=== PATIENT | male | born 1990 | race Caucasian/White ===

== ENCOUNTER 2020-08-11 11:44 | Emergency (ER) | payer SELFPAY ==
[2020-08-11 11:44] VITALS: BP 153/94; PULSE 77; RESP 16; TEMP 36.2; O2SAT 97; BMI 36.2
[2020-08-11 12:38] VITALS: BP 152/99; PULSE 70; RESP 18; TEMP 36.9; O2SAT 94
[2020-08-11] MEDS: Lidocaine 1% (20 ml mdv) 20 ML Vial INFILT (12:39)
--- NOTE | 2020-08-11 14:07 | ED.VIS.GEN ---
History of Present Illness Chief Complaint: Abscess Informant: Patient Onset: Weeks Context: Gradual Onset Narrative: Patient is a 29-year-old male with history of pilonidal abscess presenting with worsening pain over his tailbone. Patient states week ago he had drainage with expression of the area. He now feels like there is a hard bump in there and pus underneath it. He feels it needs to be drained. He states he started to have pain that goes to his tailbone and around to his hips. He denies associated fever or chills. He denies any difficulty with bowel movements or urination. Last pilonidal was 8 to 9 years ago. He is never seen a surgeon for it. States he recently came back from [place] from a hunting trip and is sitting a lot which is what seems to be irritated it. No other complaints at this time. Past Medical History - Allergies and Home Meds Allergies/Adverse Reactions: Allergies No Known Allergies Allergy (Verified 08/11/20 11:44) Primary Care Physician: Care Physician,No Primary [Primary Care Provider] - Past Medical History: - - Pilonidal abscess Surgical History: noncontributory Smoking Status: Never smoker Review of Systems General: Denies: Chills, Fever, Sweats Eyes: Denies: Visual changes - bilaterally, Diplopia ENT: Denies: Rhinorrhea, Sore throat Cardiovascular: Denies: Chest pain, Palpitations Respiratory: Denies: Dyspnea, Cough, Dyspnea on exertion Gastrointestinal: Denies: Abdominal pain, Nausea, Vomiting, Diarrhea, Melena, Hematochezia Genitourinary: Denies: Dysuria, Hematuria, Frequency Musculoskeletal: Denies: Back pain, Extremity Pain Skin: Reports: Abscess - tailbone . Denies: Rash, Wounds Neurological: Denies: Headache, Weakness, Numbness Physical Exam Vital Signs/Narrative: Vital Signs Temp Pulse Resp BP Pulse Ox 08/11/20 12:38 98.5 F 70 18 152/99 H 94 08/11/20 11:44 97.2 F L 77 16 153/94 H 97 Inital Vital Signs reviewed: Yes General: Well nourished, Well developed, Obese, No Acute Distress Head: Normocephalic, Atraumatic Eyes: Perrl, EOMI ENT: Moist mucous membranes, No rhinorrhea Neck: Supple, Nontender Cardiovascular: Regular rate, Regular rhythm, No murmurs Respiratory: No distress, CTA bilaterally, Chest nontender Abdomen: Soft, Nontender, Nondistended, Normal bowel sounds Back: Nontender, Normal Inspection. Negative for: CVA tenderness, Spinal tenderness Extremities: Nontender, No edema Skin: Normal color, No rash, - - Hard mobile 1cm mass palpated just superior to the gluteal cleft, there is a old appearing sinus tract present. No associated fluctuance, erythema or drainage. Neurological: Alert, Oriented x3, Cranial nerves II-XII grossly intact, Normal Strength, Normal Sensation Psychological: Normal affect, Normal Mood Diagnostic/Tx/Re-eval - Medical Decision Making Patient is evaluated for recurrent abscess and pain to his tailbone area. On exam patient does not appear to have an active pilonidal abscess and likely it spontaneously drained a week ago and went down. Patient is quite insistent that there is purulence in there however. I did offer CT to better visualize especially she is having pain going to his hips but he states he does not want that as he is vidales pay. Bedside ultrasound performed by myself does show a 1 cm circumferential hypoechoic area about 1 cm underneath the skin. Do not see anything deeper. It counseled patient that I do not expect to get purulent from it but he is insistent that he wanted to be drained. Patient is counseled on the risk of having it be unsuccessful and need for outpatient surgical follow-up. He verbalizes agreement understand with this. I&D performed and there was a very small amount of hard white material expressed but no other purulent material. Patient does not look to have a secondary infection I do not think he needs antibiotics at this time. He is given referral for surgery is likely this will need to be evaluated in the OR for removal not emergently. Patient is counseled on signs and symptoms requiring return to the emergency room. Patient verbalizes agreement and understand this plan. Patient discharged home in stable and improved condition. Procedures Procedure(s): Incision and drainage. Area cleaned with alcohol. 4 to 5 cc of 1% lidocaine without alcohol injected subcutaneously to form the wheel. #10 blade used to make a vertical 2 cm incision over the mass. There is small amount of bleeding but no purulence expressed. A small amount of hard white material was expressed. Area was explored with hemostats to break up any potential loculations. Packing placed to keep the wound open and let heal by secondary intent. No immediate complications. ED Disposition - Plan for ED Patient: Disposition: Home or Assisted Living Diagnosis: Pilonidal cyst without abscess Instructions: ED Pilonidal Cyst, Not Infected Referrals: Yemi Evangelista MD [STAFF PHYSICIAN] -
== END 2020-08-11 14:36 | disposition home or self-care (01) ==
PROVIDERS: Emergency Provider Emergency Medicine
DX: L05.91 Pilonidal cyst without abscess (principal); E66.9 Obesity, unspecified
CPT/HCPCS: 10060; 99282

== ENCOUNTER 2021-07-24 10:32 | Emergency (ER) | payer MEDICAID, SELFPAY ==
[2021-07-24 10:32] VITALS: BP 168/65; PULSE 70; RESP 16; TEMP 36.6; O2SAT 99; BMI 36.2
--- NOTE | 2021-07-24 10:41 | ED.VIS.DENTA ---
HPI History of Present Illness Chief Complaint: Dental Informant: patient Onset/Context/Timing Onset: Days (3 days) Context: Gradual Onset Current Severity: Moderate Maximum Severity: Moderate Narrative Narrative: Patient presents secondary to right upper dental pain. He reports his wisdom tooth grew in sideways and he has a hole in the tooth. He has had some mild tooth aches in the past but had increased pain over the past 3 days. He has an appointment to see his dentist later this month. He has been taking Tylenol for pain. PFSH PFSH Medical History no medical history no medical history Home Medications naproxen [Naprosyn] 500 mg PO BID PRN #20 tab 07/24/21 [Rx Last Taken Unknown] penicillin V potassium 500 mg PO 4X/DAY #40 tab 07/24/21 [Rx Last Taken Unknown] Allergy/AdvReac Type Severity Reaction Status Date / Time No Known Allergies Allergy Verified 07/24/21 10:32 Social History Smoking Status: Never smoker ROS ROS ED Constitutional Constitutional ED: Denies chills or fever(s) Eyes Eyes: Denies change in vision ENT ENT ED: Reports other Details: Right-sided dental pain Cardiovascular Cardiovascular: Denies chest pain Respiratory/Chest Respiratory/Chest: Denies cough or dyspnea Gastrointestinal Gastrointestinal: Denies abdominal pain Musculoskeletal Musculoskeletal: Denies back pain or neck pain Integumentary Denies rash Neurologic Neurologic: Denies headache(s) Psychiatric Psychiatric: Denies anxiety or depression Hematologic/Lymphatic Hematologic/Lymphatic: Denies easy bruising Allergic/Immunologic Allergic/Immunologic ED: Denies urticaria EXAM Physical Exam Const Vital Signs: 07/24/21 10:32 Temperature 97.8 F Temperature Source Temporal Pulse Rate 70 Respiratory Rate 16 Blood Pressure 168/65 H Blood Pressure Mean 99 Pulse Ox 99 Oxygen Delivery Method Room Air Positive well nourished and well developed General Appearance ED: well developed HEENT HEENT Narrative: Tenderness palpation right maxillary third molar. Mild surrounding gum edema. No trismus. Posterior pharynx exam is normal. No cervical lymphadenopathy. Eyes PERRL and EOMs intact bilaterally Lymph Lymphatic: no lymphadenopathy noted Chest Wall inspection of chest normal Resp normal respiratory effort Cardio regular rate and regular rhythm Neuro oriented x3 Sensorium / Orientation: alert Psych mental status grossly normal Skin no rashes or lesions noted [facility] Treatment and Re-Evaluation Narrative: Patient be treated with Pen-Vee K and naproxen, first dose is given here. Patient is already on the cancellation list at his dentist office. Discharge Plan Triage Chief Complaint: Dental ED Provider: Lizzie Villalba Dx/Rx/DC Orders Clinical Impression: Odontalgia Instructions: ED Dental Pain Prescriptions: New penicillin V potassium 500 MG tablet 500 mg PO 4X/DAY Qty: 40 RF: 0 naproxen [Naprosyn] 500 mg tablet 500 mg PO BID PRN (Reason: pain) Qty: 20 RF: 0 Primary Care Provider: Care Physician,No Primary Referrals: Care Physician,No Primary [Primary Care Provider] - Activity Restrictions/Additional Instructions: Follow-up with your dentist as scheduled. Disposition Disposition: Home, Self Care
[2021-07-24] MEDS: Naproxen 500 MG Tablet PO (10:59)
[2021-07-24] MEDS: Penicillin Vk 250 MG Tablet 500 MG PO (10:59)
== END 2021-07-24 11:08 | disposition home or self-care (01) ==
LOC: ED 11:08
PROVIDERS: Emergency Provider Emergency Medicine; Visit Provider Emergency Medicine
DX: K08.89 Other specified disorders of teeth and supporting structures (principal)
CPT/HCPCS: 99283

== ENCOUNTER 2021-07-24 13:53 | Emergency (ER) | payer MEDICAID, SELFPAY ==
[2021-07-24 13:54] VITALS: BP 192/106; PULSE 61; RESP 15; TEMP 36; O2SAT 98; BMI 36.2
--- NOTE | 2021-07-24 14:03 | ED.VIS.DENTA ---
HPI History of Present Illness Chief Complaint: Dental Detail of Chief Complaint: Increased dental pain and new facial swelling Informant: patient Onset/Context/Timing Onset: Hours (Since ER visit a couple hours ago) Context: Sudden Onset Timing: Continuous Quality: Pain Location: Tooth #31 Current Severity: Severe Maximum Severity: Severe Worsened by: Nothing Associated Symptoms Assocated Symptom - Dental: face swelling; Negative for fever or jaw swelling Narrative Narrative: Patient is a 30-year-old male who presents because of facial swelling and increased pain. He was seen earlier today and placed on antibiotic and NSAID. Patient states he cannot comfort his was having a baby because he is in so much pain. He denies inability to open or close his mouth. He denies change in voice. He denies history of rheumatic fever. He denies history of heart murmur or being immune suppressed. There is no use or history of IV drug use. Prior similar symptoms: Yes Recent Illness/Hospitalization: Yes PFSH PFSH Home Medications hydrocodone-acetaminophen 1 tab PO Q6H PRN PRN 3 Days #10 tablet 07/24/21 [Rx Last Taken Unknown] naproxen [Naprosyn] 500 mg PO BID PRN #20 tab 07/24/21 [Rx Last Taken Unknown] penicillin V potassium 500 mg PO 4X/DAY #40 tab 07/24/21 [Rx Last Taken Unknown] Allergy/AdvReac Type Severity Reaction Status Date / Time No Known Allergies Allergy Verified 07/24/21 10:32 Social History (Updated 07/24/21 @ 14:[address] Gene Mccarty MD) household members: spouse Smoking Status: Never smoker substance use type: does not use ROS ROS ED Constitutional Constitutional ED: Denies chills, fever(s), subjective, sweats or weight loss Eyes Eyes: Denies blurry vision or change in vision ENT ENT ED: Denies ear pain, rhinorrhea or sore throat Gastrointestinal Gastrointestinal: Denies nausea or vomiting Integumentary Reports abscess; Denies rash EXAM Physical Exam Const Vital Signs: 07/24/21 13:54 Temperature 96.8 F L Temperature Source Temporal Pulse Rate 61 Respiratory Rate 15 Blood Pressure 192/106 H Blood Pressure Mean 134 Pulse Ox 98 Oxygen Delivery Method Room Air Positive well nourished and well developed General Appearance ED: well developed and NAD; Negative for pallor or other HEENT Reports TM's clear HEENT Narrative: There is no trismus. There is no evidence of a periapical abscess that has fistulized. There is no evidence of a periodontal abscess that would be amenable to I&D. Agree with earlier documentation that there is slight erythema in the proximity of the upper right molar. tenderness; Negative for trauma Face and Sinus: Negative for sinuses nontender Tympanic Membrane ED: Yes TM's clear Mouth ED: Yes oral and palatal mucosa normal, Yes lips normal, Yes tongue normal, Yes salivary gland normal and No mouth trauma Mouth: oral and palatal mucosa normal, lips normal, tongue normal, salivary gland normal and No mouth trauma Teeth and Gingiva: abnormal tooth and associated gingiva and teeth discoloration Throat: posterior oropharynx normal Eyes PERRL and EOMs intact bilaterally General Eye ED: Negative for pale conjunctiva or scleral icterus Neck no lymphadenopathy, supple and no JVD General: normal visual inspection Resp normal respiratory effort Cardio regular rate, regular rhythm, S1 normal heart sound, S2 normal heart sound and no murmurs Neuro oriented x3 and CN's II-XII intact bilaterally Sensorium / Orientation: alert Psych Attitude: agitated Skin no rashes or lesions noted General Skin Exam: Negative for pallor MDM MDM MDM Narrative Medical decision making narrative: Patient has dental pain all likely due to a periapical abscess since he now has facial swelling. Patient received a 8 [place] tablet and was discharged prescription for pain medicine. He is instructed to follow-up with dentist in 1 to 2 weeks. Discharge Plan Triage Chief Complaint: Dental ED Provider: Gene Mccarty Dx/Rx/DC Orders Clinical Impression: Periapical abscess Instructions: ED Dental Abscess Prescriptions: New hydrocodone-acetaminophen [hydrocodone-acetaminophen] 1 TABLET tablet 1 tab PO Q6H PRN PRN (Reason: Pain) 3 Days Qty: 10 RF: 0 No Action penicillin V potassium 500 MG tablet 500 mg PO 4X/DAY Qty: 40 RF: 0 naproxen [Naprosyn] 500 mg tablet 500 mg PO BID PRN (Reason: pain) Qty: 20 RF: 0 Primary Care Provider: Care Physician,No Primary Referrals: Care Physician,No Primary [Primary Care Provider] - Dentist,Your [STAFF PHYSICIAN] - 1-2 Weeks Disposition Disposition: Home, Self Care
[2021-07-24] MEDS: HYDROcodone Bitartrate/Apap 5/325 Tablet PO (14:07)
== END 2021-07-24 14:15 | disposition home or self-care (01) ==
LOC: ED 14:11
PROVIDERS: Emergency Provider Emergency Medicine; Visit Provider Emergency Medicine
DX: K04.7 Periapical abscess without sinus (principal)
CPT/HCPCS: 99283

== ENCOUNTER 2021-08-18 11:17 | Emergency (ER) | payer MEDICAID, SELFPAY ==
[2021-08-18 11:18] VITALS: BP 155/103; PULSE 60; RESP 16; TEMP 36.4; O2SAT 95; BMI 23.1
--- NOTE | 2021-08-18 11:29 | EDS_ITS ---
HPI HPI - GI History of Present Illness Chief Complaint: Flank Pain Informant: patient Abdominal Pain/Flank Pain Onset: Days Context: Sudden Onset Timing: Continuous Quality: Aching and Sharp Location: Left Flank Current Severity: Mild Maximum Severity: Moderate Worsened by: Nothing Relieved by: Nothing Nausea/Vomiting/Emesis GI Symptom: Negative for Nausea and Vomiting Diarrhea/Melena/Hematochezia GI Symptom: Negative for Diarrhea, Melena and Hematochezia Associated Symptoms Associated Symptoms: Negative for Dysuria, Frequency, Hematuria and Urgency Narrative Narrative: 30-year-old male no seen past medical or surgical history. States had left flank pain for about a week. Denies any fall injury or trauma. He does not think he injured his back. Said it came on suddenly about a week ago really has not improved. He denies any fever or chills. No dysuria or hematuria. Nothing particular makes it better or worse. Patient states he has been trying to lose weight to get in better shape he is lost about 30 to 40 pounds of the last 1 to 2 months. Prior similar symptoms: No Recent Illness/Hospitalization: No PFSH PFSH Home Medications hydrocodone-acetaminophen 1 tab PO Q6H PRN PRN 3 Days #10 tablet 07/24/21 [Rx Last Taken Unknown] naproxen [Naprosyn] 500 mg PO BID PRN #20 tab 07/24/21 [Rx Last Taken Unknown] penicillin V potassium 500 mg PO 4X/DAY #40 tab 07/24/21 [Rx Last Taken Unknown] Allergy/AdvReac Type Severity Reaction Status Date / Time No Known Allergies Allergy Verified 08/18/21 11:19 Surgical History (Updated 08/18/21 @ 11:48 by Kelly Mendoza RN) Hx of tonsillectomy Social History household members: spouse Smoking Status: Never smoker substance use type: does not use ROS ROS ED ROS Narrative Left flank pain. Review of Systems ROS Unobtainable: Denies due to encephalopathy Constitutional Constitutional ED: Denies fever(s) ENT ENT ED: Denies ear pain Cardiovascular Cardiovascular: Denies chest pain Respiratory/Chest Respiratory/Chest: Denies cough or dyspnea Gastrointestinal Gastrointestinal: Denies abdominal pain, constipation, diarrhea, melena, nausea or vomiting Genitourinary Genitourinary ED: Denies dysuria, hematuria or urinary frequency Musculoskeletal Musculoskeletal: Denies myalgias Integumentary Denies rash Neurologic Neurologic: Denies headache(s) Psychiatric Psychiatric: Denies depression Endocrine Endocrinology: Denies polyuria Hematologic/Lymphatic Hematologic/Lymphatic: Denies easy bruising Allergic/Immunologic Allergic/Immunologic ED: Denies urticaria EXAM Physical Exam Narrative Exam Narrative: 22-year-old male no acute distress. Vital signs stable afebrile. Initial blood pressure 155/103. HEENT exam unremarkable. Lungs are clear. Heart regular rhythm no murmur. Abdomen soft nontender. No hernia or masses. External exam unremarkable. Nontender. Back mild left flank tenderness. No ecchymosis or bruising. No signs of trauma. Moving all 4 extremities. Neurovascularly intact. Nontender. No edema. Neurologically is awake alert with no focal motor deficits. Const Vital Signs: 08/18/21 11:18 Temperature 97.6 F L Temperature Source Temporal Pulse Rate 60 Respiratory Rate 16 Blood Pressure 155/103 H Blood Pressure Mean 120 Pulse Ox 95 Oxygen Delivery Method Room Air Positive well nourished and well developed; Negative for obese, cachectic, contractures or unkempt General Appearance ED: well developed and NAD; Negative for unkempt, cachectic, contractures or pallor Nutritional Appearance: Negative for cachectic or obese HEENT Reports moist mucous membranes normocephalic and atraumatic; Negative for trauma or tenderness Eyes PERRL and EOMs intact bilaterally General Eye ED: Negative for pale conjunctiva or scleral icterus Neck no lymphadenopathy, supple and no JVD General: Negative for tenderness Resp normal respiratory effort and clear to auscultation bilaterally Auscultation: Negative for rales, rhonchi, wheezes or diminished lung sounds Cardio regular rate, regular rhythm, S1 normal heart sound, S2 normal heart sound and no murmurs GI non-tender, non-distended and no masses Auscultation: normoactive bowel sounds Palpation: soft; Negative for tender, guarding, rigid or rebound tenderness present Back/Spine no CVA tenderness Back/Spine Narrative: Mild left flank tenderness. Extremity Negative for full ROM General Extremety ED: Negative for edema or tenderness General Extremity: Negative for edema Neuro CN's II-XII intact bilaterally and moves all extremities Sensorium / Orientation: alert, oriented to person, oriented to place and oriented to time; Negative for orientation impaired, confused, lethargic or stuporous Psych mental status grossly normal and thought process normal Appearance: Negative for unkempt Attitude: No agitated Mood & Affect: Negative for depressed or tearful Skin no wounds General Skin Exam: Negative for jaundice or pallor Lesions: no lesions Rashes: no rashes MDM MDM MDM Narrative Medical decision making narrative: 30-year-old male left flank pain. This may be musculoskeletal pain versus kidney stone. CAT scan labs are being obtained. He did not need anything for pain. Repeat exam patient is doing well at 12:40 PM. He was given IV Toradol for pain. We are awaiting his urinalysis. Lab Data Attestation: I reviewed the patient's lab results. Lab results narrative: CBC unremarkable. White count of 5. H&H 14 and 42. Electrolytes normal gap of 4 normal BUN and creatinine at [address] flank study was unremarkable. Urinalysis normal. Labs: Laboratory Results - last 24 hr 08/18/21 08/18/21 08/18/21 11:30 11:30 12:45 WBC 5.4 RBC 4.80 Hgb 14.6 Hct 42.0 MCV 87.5 MCH 30.4 MCHC 34.8 RDW Std Deviation 38.9 RDW Coeff of [place] 12.2 Plt Count 211 MPV 10.9 Immature Gran % (Auto) 0.200 Neut % (Auto) 56.9 Lymph % (Auto) 32.1 [place] % (Auto) 9.3 Eos % (Auto) 0.9 Baso % (Auto) 0.6 Absolute Neuts (auto) 3.1 Absolute Lymphs (auto) 1.73 Nucleated RBC % 0 Sodium 139 Potassium 3.7 Chloride 107 Carbon Dioxide 28.0 Anion Gap 4 L BUN 13 Creatinine 0.95 Estim Creat Clear Calc 140.82 Est GFR (MDRD) Af Amer 121 Est GFR (MDRD) Non-Af 100 BUN/Creatinine Ratio 13.7 Glucose 127 H Calcium 8.9 Urine Color Yellow Urine Clarity Clear Urine pH 6.0 Ur Specific [place] 1.020 Urine Protein 15 H Urine Glucose (UA) Normal Urine Ketones 5 H Urine Occult Blood Negative Urine Nitrite Negative Urine Bilirubin Negative Urine Urobilinogen Normal Ur Leukocyte Esterase Negative Urine RBC 0 SEEN Urine WBC 0-5 SEEN Ur Squamous Epith Cells 0-5 SEEN Urine Bacteria 0 SEEN Urine Mucus 1+ Radiography Diagnostic Testing: Clinical Impression(s) from Imaging Studies Abdomen/Pelvis CT 08/18/21 11:45 IMPRESSION: Normal unenhanced CT of the abdomen and pelvis. Electronically Signed: Alberto Romero MD at 12:09 EDT Reading Location ID and State: [facility] / [place] , Service support , Discharge Plan Triage Chief Complaint: Flank Pain ED Provider: Franco Tran Dx/Rx/DC Orders Clinical Impression: Acute flank pain Instructions: ED Flank Pain, Uncertain Cause Prescriptions: No Action penicillin V potassium 500 MG tablet 500 mg PO 4X/DAY Qty: 40 RF: 0 naproxen [Naprosyn] 500 mg tablet 500 mg PO BID PRN (Reason: pain) Qty: 20 RF: 0 hydrocodone-acetaminophen [hydrocodone-acetaminophen] 1 TABLET tablet 1 tab PO Q6H PRN PRN (Reason: Pain) 3 Days Qty: 10 RF: 0 Primary Care Provider: Care Physician,No Primary Referrals: Nish Gibbs MD [STAFF PHYSICIAN] - 1-2 Weeks Care Physician,No Primary [Primary Care Provider] - Activity Restrictions/Additional Instructions: Your labs, urinalysis and CAT scan were all unremarkable. Follow-up with a local primary care physician. Keep up the good work you are doing well and losing weight appropriately. Disposition Disposition: Home, Self Care
[2021-08-18] MEDS: Ketorolac 30 MG/ML Syringe IV (11:43)
[2021-08-18 11:45] LABS: Absolute Lymphocyte Count 1.73 X10^3/uL (0.83-4.51); Absolute Neutrophil Count 3.1 X10^3/uL (2.0-7.7); Basophil# 0.03 X10^3/uL; Basophil% 0.6 % (0-1); Eosinophil# 0.05 X10^3/uL; Eosinophils% 0.9 % (0-5); Hemoglobin 14.6 g/dL (13.0-16.5); Lymphocyte # 1.73 X10^3/ul (0.83-4.51); Lymphocyte % 32.1 % (19-41); Mean Corp Hgb Conc 34.8 g/dL (32-36); Mean Corpuscular Hgb 30.4 pg (27.0-32.0); Mean Corpuscular Volume 87.5 fL (80-94); Mean Platelet Vol. 10.9 fl (6.2-12.0); Monocyte% 9.3 % (0-10); NRBC Flagged by Analyzer 0 % (0-5); Neutrophil # 3.07 X10^3/uL (2.7-7.7); Neutrophil % 56.9 % (47-70); Platelet Count 211 K/mm3 (150-450); RBC Distribution Width CV 12.2 % (11.6-14.6); RBC Distribution Width SD 38.9 fl (35.1-43.9); White Blood Count 5.4 K/mm3 (4.4-11.0)
--- NOTE | 2021-08-18 11:45 | CT_ITS ---
STUDY: CT ABDOMEN AND PELVIS WITHOUT CONTRAST REASON FOR EXAM: Male, 30 years old. Left-sided flank pain. RADIATION DOSAGE (If Supplied By Facility): CTDIvol = ( 22.49 ) mGy, DLP = ( 1359.85 ) mGycm TECHNIQUE: Transaxial images were obtained from the dome of the diaphragm to the symphysis pubis without oral contrast, and without intravenous contrast. Sagittal and coronal images were reconstructed. Individualized dose optimization techniques were used for this CT. COMPARISON: None. FINDINGS: The visualized lung bases are unremarkable. The visualized portions of the heart are within normal limits. Normal liver. Normal gallbladder and extrahepatic biliary system. There is a benign calcified granuloma of the spleen. Normal pancreas. Normal bilateral adrenal glands. Normal right kidney. Normal left kidney. Normal visualized stomach. Normal small intestine. Normal colon. The appendix is visualized and appears normal. Normal abdominal aorta. Normal inferior vena cava. Normal retroperitoneum. Normal urinary bladder. Normal abdominal wall. There are degenerative changes of the visualized lumbar spine. CT/Abdomen/Pelvis without Cont IMPRESSION: Normal unenhanced CT of the abdomen and pelvis. Electronically Signed: Alberto Romero MD at 12:09 EDT ,
[2021-08-18 11:53] LABS: Anion Gap 4 (5-15); BUN 13 mg/dL (7-18); BUN/Creat Ratio 13.7 RATIO (10-20); Calcium,Total 8.9 mg/dL (8.5-10.1); Chloride 107 mmol/L (98-107); Creatinine, Serum 0.95 mg/dL (0.70-1.30); EST Glomerular Filtration Rate 100 mL/min (>60); Est Glom Filt Rate - Afr Amer 121 mL/min (>60); Estimated Creatinine Clearance 140.82 ml/min; Glucose 127 mg/dL (74-106); Potassium 3.7 mmol/L (3.5-5.1); Sodium Level 139 mmol/L (136-145)
[2021-08-18 12:50] LABS: Bacteria 0 SEEN /hpf (None Seen); Red Blood Cells-Urine 0 SEEN /hpf (0-5)
[2021-08-18 12:53] LABS: Color, Urine Yellow (Yellow); Glucose, Dipstick Normal (Normal); Ketone-Dipstick 5 mg/dl (Negative); Leukocyte Esterase-Dipstick Negative /ul (Negative); Nitrite-Dipstick Negative (Negative); Occult Blood-Urine Negative /ul (Negative); Protein-Dipstick 15 mg/dl (Negative); Urine Bilirubin Dipstick Negative (Negative); Urine Clarity Clear (Clear); Urine Urobilinogen Normal (Normal)
[2021-08-18 13:03] LABS: Mucous, Urine 1+ /hpf (<or=2+); Squamous Epithelial Cells - UA 0-5 SEEN /hpf (0-5); White Blood Cells 0-5 SEEN /hpf (0-5)
== END 2021-08-18 13:21 | disposition home or self-care (01) ==
PROVIDERS: Emergency Provider Emergency Medicine; Visit Provider Emergency Medicine
DX: R10.9 Unspecified abdominal pain (principal)
CPT/HCPCS: 74176; 80048; 81001; 85025; 96374; 99283; A4216

== ENCOUNTER 2022-10-13 17:47 | Emergency (ER) | payer MEDICAID, SELFPAY ==
[2022-10-13 17:49] VITALS: BP 105/87; PULSE 121; RESP 18; TEMP 36.6; O2SAT 96; BMI 34.0
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
[2022-10-13] MEDS: Diphth,Pertuss(Acell),Tet Vac 0.5 ML Vial IM (19:11)
== END 2022-10-13 20:23 | disposition home or self-care (01) ==
PROVIDERS: Emergency Provider Emergency Medicine; Visit Provider Emergency Medicine
DX: S09.90XA Unspecified injury of head, initial encounter (principal); S50.819A Abrasion of unspecified forearm, initial encounter; S00.01XA Abrasion of scalp, initial encounter; V43.52XA Car driver injured in collision with other type car in traffic accident, initial encounter; Z23 Encounter for immunization
CPT/HCPCS: 70450; 72125; 90471; 90715; 99285

== ENCOUNTER 2023-04-06 21:59 | Inpatient (IN) | payer MEDICAID, SELFPAY ==
[2023-04-06 22:00] VITALS: BP 182/90; PULSE 89; RESP 18; TEMP 36.6; O2SAT 99; BMI 37.0
--- NOTE | 2023-04-06 22:43 | EDS_ITS ---
HPI History of Present Illness Chief Complaint: Substance Abuse Detail of Chief Complaint: Request for detox Informant: patient Narrative Narrative: Patient presents requesting detox from benzos, methamphetamine, marijuana, and cocaine. States has been using for the last year, every day for the last 6 months. I did explain to him that we do offer detox program from benzos but no formal detox program from meth, marijuana, or cocaine. Patient states he also drinks every other day or so. He states he has developed some withdrawal symptoms when he does not drink for several days in a row. PFSH PFSH Home Medications hydrocodone-acetaminophen 5-325mg 5mg-325mg 1 tab PO Q6H PRN PRN Pain 3 days #10 TABLETS 07/24/21 [Rx Last Taken Unknown] naproxen 500 mg tablet (Naprosyn) 500 mg PO BID PRN pain #20 tabs 07/24/21 [Rx Last Taken Unknown] penicillin V potassium 500 mg tablet 500 mg PO 4X/DAY #40 tabs 07/24/21 [Rx Last Taken Unknown] cyclobenzaprine 10 mg tablet 10 mg PO TID PRN Muscle Spasm 5 days #10 TABLETS 10/13/22 [Rx Last Taken Unknown] naproxen 500 mg tablet,delayed release 500 mg PO BID #10 tabs 10/13/22 [Rx Last Taken Unknown] Allergy/AdvReac Type Severity Reaction Status Date / Time No Known Allergies Allergy Verified 04/06/23 22:02 Surgical History Hx of tonsillectomy Social History household members: spouse Smoking Status: Never smoker substance use type: does not use ROS ROS ED Constitutional Constitutional ED: Denies chills or fever(s) Eyes Eyes: Denies discharge from eye(s) ENT ENT ED: Denies discharge from eye(s), rhinorrhea or sore throat Cardiovascular Cardiovascular: Denies chest pain or palpitations Respiratory/Chest Respiratory/Chest: Denies cough or dyspnea Gastrointestinal Gastrointestinal: Denies abdominal pain, nausea or vomiting Genitourinary Genitourinary ED: Denies dysuria Musculoskeletal Musculoskeletal: Denies back pain or extremity pain Integumentary Denies Abrasions or rash Neurologic Neurologic: Denies headache(s) or weakness Psychiatric Psychiatric: Denies anxiety or depression Allergic/Immunologic Allergic/Immunologic ED: Denies lip swelling or urticaria EXAM Physical Exam Const Vital Signs: 04/06/23 22:00 Temperature 97.9 F Temperature Source Temporal Pulse Rate 89 Respiratory Rate 18 Blood Pressure 182/90 H Blood Pressure Mean 120 Pulse Ox 99 Oxygen Delivery Method Room Air Positive well nourished and well developed General Appearance ED: well developed HEENT Reports moist mucous membranes Eyes EOMs intact bilaterally Chest Wall inspection of chest normal and palpation of chest normal Resp normal respiratory effort and clear to auscultation bilaterally Cardio regular rate and regular rhythm GI soft to palpation Neuro oriented x3 and no sensory deficits noted Motor Exam: strength 5/5 throughout Psych mental status grossly normal MDM MDM MDM Narrative Medical decision making narrative: Lab work for addiction medicine obtained. Patient did review the rules of the detox program and agrees. History & Record Review Discussion w/independent historian: Patient Lab Data Attestation: I reviewed the patient's lab results. Labs: Laboratory Results - last 24 hr 04/06/23 22:40 Sodium 139 Potassium 3.7 Chloride 107 Carbon Dioxide 28.0 Anion Gap 4 L BUN 11 Creatinine 0.96 Estim Creat Clear Calc 134.48 Est GFR (MDRD) Af Amer 119 Est GFR (MDRD) Non-Af 98 BUN/Creatinine Ratio 11.5 Glucose 98 Calcium 8.5 Total Bilirubin 0.50 AST 27 ALT 45 Alkaline Phosphatase 45 Total Protein 7.6 Albumin 4.2 Globulin 3.4 Albumin/Globulin Ratio 1.2 Urine Opiates Screen NEGATIVE Urine Methadone Screen NEGATIVE Ur Barbiturates Screen NEGATIVE Ur Phencyclidine Scrn NEGATIVE Ur Amphetamines Screen POSITIVE H MDMA (Ecstasy) Screen NEGATIVE U Benzodiazepines Scrn POSITIVE H Urine Cocaine Screen NEGATIVE U Cannabinoids Screen POSITIVE H Ur Drug Screen Comment Ethyl Alcohol < 3.0 Treatment and Re-Evaluation Narrative: Chemistry studies are unremarkable. LFTs are normal. Tox screen is positive for amphetamines, benzodiazepines, and cannabinoids. EtOH is negative. Patient discussed with hospitalist and will be admitted to the detox program. Discharge Plan Triage Chief Complaint: Substance Abuse ED Provider: Lizzie Villalba Dx/Rx/DC Orders Clinical Impression: Desire for detoxification, Benzodiazepine abuse, Drug abuse Prescriptions: No Action penicillin V potassium 500 MG tablet 500 mg PO 4X/DAY Qty: 40 0RF naproxen [Naprosyn] 500 mg tablet 500 mg PO BID PRN (Reason: pain) Qty: 20 0RF hydrocodone-acetaminophen [hydrocodone-acetaminophen] 1 TABLET tablet 1 tab PO Q6H PRN PRN (Reason: Pain) 3 Days Qty: 10 0RF naproxen 500 mg tablet,delayed release (DR/EC) 500 mg PO BID Qty: 10 0RF cyclobenzaprine 10 mg tablet 10 mg PO TID PRN (Reason: Muscle Spasm) 5 Days Qty: 10 0RF Primary Care Provider: Care Physician,No Primary Referrals: Care Physician,No Primary [Primary Care Provider] - Disposition Disposition: Acute Care Hospital [facility]
[2023-04-06 23:06] LABS: Alcohol, Blood (Medical)-Serum < 3.0 mg/dL
[2023-04-06 23:11] LABS: ALB/GLOB Ratio 1.2 RATIO (0.9-2.4); AST(SGOT) 27 U/L (15-37); Alanine Aminotransfer ALT/SGPT 45 U/L (16-61); Albumin, Serum 4.2 g/dL (3.2-5.0); Alkaline Phosphatase 45 U/L (45-117); Anion Gap 4 (5-15); BUN 11 mg/dL (7-18); BUN/Creat Ratio 11.5 RATIO (10-20); Calcium,Total 8.5 mg/dL (8.5-10.1); Chloride 107 mmol/L (98-107); Creatinine, Serum 0.96 mg/dL (0.70-1.30); EST Glomerular Filtration Rate 98 mL/min (>60); Est Glom Filt Rate - Afr Amer 119 mL/min (>60); Estimated Creatinine Clearance 134.48 ml/min; Globulin 3.4 g/dL (2.2-4.2); Glucose 98 mg/dL (74-106); Potassium 3.7 mmol/L (3.5-5.1); Protein, Total 7.6 g/dL (6.4-8.2); Sodium Level 139 mmol/L (136-145)
[2023-04-06 23:18] LABS: Amphetamine Urine VISTA POSITIVE (<1000 ng/mL); Barbiturate Urine VISTA NEGATIVE (< 200 ng/mL); Benzodiazepine Urine VISTA POSITIVE (< 200 ng/mL); Cocaine Urine VISTA NEGATIVE (< 300 ng/mL); Ecstacy Urine VISTA NEGATIVE (< 500 ng/mL); Methadone Urine VISTA NEGATIVE (< 300 ng/mL); PCP Urine VISTA NEGATIVE (< 25 ng/mL); THC Urine VISTA POSITIVE (< 50 ng/mL); Vista UDS pH Range 7
[2023-04-06 23:50] VITALS: BP 158/93; PULSE 90; RESP 18; TEMP 36.6; O2SAT 97
[2023-04-07 00:46] VITALS: BMI 35.8
[2023-04-07 00:50] VITALS: BP 167/96; PULSE 75; RESP 16; TEMP 36.6; O2SAT 100
[2023-04-07] MEDS: LORazepam 1 MG Tablet 2 MG PO ×3 (01:28→09:23)
--- NOTE | 2023-04-07 01:29 | HP.PCM.HOS_ITS ---
HPI - General General Date of Admission: 04/06/23 Date of Service: 04/06/23 Chief Complaint: Polysubstance abuse HPI Narrative AMY BEASLEY, is a 32 M who presents detoxification from ongoing substance abuse to the ED. over the last 6 months he has been daily using methamphetamine, benzodiazepines, marijuana. Occasionally he has also been using inhaled or injected cocaine. He has not been able to stay sober even for 2 consecutive days and hence is seeking medical support at this time. No active concerns, his last drug use was today. He is alert oriented on presentation, able to tolerate p.o. diet well. [facility] Home Medications NK 04/06/23 [History Last Taken Unknown] Allergy/AdvReac Type Severity Reaction Status Date / Time No Known Allergies Allergy Verified 04/06/23 22:02 Surgical History Hx of tonsillectomy Social History household members: spouse Smoking Status: Current every day smoker tobacco type: cigarettes substance use type: does not use ROS Respiratory/Chest Respiratory/Chest: Denies cough, dyspnea, excessive phlegm production, hemoptysis, productive cough, shortness of breath at rest, shortness of breath with exertion, wheezing or other Gastrointestinal Gastrointestinal: Denies abdominal pain, coffee ground emesis, constipation, diarrhea, dyspepsia, hematemesis, hematochezia, loose stools, melena, nausea, vomiting or other Musculoskeletal Musculoskeletal: Denies arthralgias, back pain, joint pain, joint stiffness, joint swelling, myalgias, neck pain or other Neurologic Neurologic: Denies abnormal gait, abnormal speech, confusion, disequilibrium, dizziness, focal weakness, headache(s), numbness, paresthesias, seizure-like activity, seizures, syncope, tingling, tremor(s) or other Psychiatric Psychiatric: Reports anxiety Vital Signs Vital Signs Vital Signs: 04/06/23 22:00 04/06/23 23:50 04/07/23 00:50 Temperature 97.9 F 97.9 F 97.9 F Temperature Source Temporal Oral Pulse Rate 89 90 75 Respiratory Rate 18 18 16 Blood Pressure 182/90 H 158/93 H 167/96 H Blood Pressure Mean 120 114 119 Blood Pressure Source Monitor Blood Pressure Position Sitting Blood Pressure Location Left Forearm Pulse Ox 99 97 100 Oxygen Delivery Method Room Air Room Air Weight Weight: 286 lb 9.615 oz Body Mass Index (BMI) 35.8 Physical Exam Const alert and oriented x3 General Appearance: cooperative HEENT normocephalic Neck no lymphadenopathy Resp normal respiratory effort Cardio no JVD GI normal to inspection, nondistended, normoactive bowel sounds Extremity normal to inspection and full ROM Skin Skin Narrative: Multiple circumferential picking lesions present throughout upper extremities. Psych Mood & Affect: anxious Results Medical Records Data Attestation: I reviewed the patient's medical records Lab / Micro Data 04/06/23 22:40 Labs: Laboratory Results - last 24 hr 04/06/23 22:40: Sodium 139, Potassium 3.7, Chloride 107, Carbon Dioxide 28.0, Anion Gap 4 L, BUN 11, Creatinine 0.96, Estim Creat Clear Calc 134.48, Est GFR (MDRD) Af Amer 119, Est GFR (MDRD) Non-Af 98, BUN/Creatinine Ratio 11.5, Glucose 98, Calcium 8.5, Total Bilirubin 0.50, AST 27, ALT 45, Alkaline Phosphatase 45, Total Protein 7.6, Albumin 4.2, Globulin 3.4, Albumin/Globulin Ratio 1.2, Urine Opiates Screen NEGATIVE, Urine Methadone Screen NEGATIVE, Ur Barbiturates Screen NEGATIVE, Ur Phencyclidine Scrn NEGATIVE, Ur Amphetamines Screen POSITIVE H, MDMA (Ecstasy) Screen NEGATIVE, U Benzodiazepines Scrn POSITIVE H, Urine Cocaine Screen NEGATIVE, U Cannabinoids Screen POSITIVE H, Ur Drug Screen Comment , Ethyl Alcohol < 3.0 Assessment & Plan Assessment/Plan (1) Drug abuse: PLAN: Multiple drug abuse including methamphetamine, marijuana, benzodiazepines. The importance of quitting, and the possible difficulties he would encounter in achieving abstinence were discussed with the patient. All his questions were answered. For his skin picking lesions we can add mupirocin but he is not interested at this time. There are no features of infection of those lesions. (2) Benzodiazepine abuse: PLAN: He is at present very anxious, and has some symptoms of benzodiazepine withdrawal. Will start him on gabapentin, Ira add lorazepam as needed, loperamide. (3) Desire for detoxification: PLAN: Pharmacotherapy for withdrawal is available only for benzodiazepines. This limitation was discussed with him. He is ready to consider rehabilitation to help him quit his addictions. Charges/Coding Visit Charges Inpatient E&M: 85962 Init Hosp L3
[2023-04-07 01:52] LABS: ALB/GLOB Ratio 1.2 RATIO (0.9-2.4); AST(SGOT) 31 U/L (15-37); Alanine Aminotransfer ALT/SGPT 44 U/L (16-61); Albumin, Serum 4.1 g/dL (3.2-5.0); Alkaline Phosphatase 44 U/L (45-117); Anion Gap 4 (5-15); BUN 11 mg/dL (7-18); BUN/Creat Ratio 11.4 RATIO (10-20); Calcium,Total 8.9 mg/dL (8.5-10.1); Chloride 108 mmol/L (98-107); Creatinine, Serum 0.96 mg/dL (0.70-1.30); EST Glomerular Filtration Rate 97 mL/min (>60); Est Glom Filt Rate - Afr Amer 118 mL/min (>60); Estimated Creatinine Clearance 134.48 ml/min; Globulin 3.3 g/dL (2.2-4.2); Glucose 96 mg/dL (74-106); Potassium 3.9 mmol/L (3.5-5.1); Protein, Total 7.4 g/dL (6.4-8.2); Sodium Level 139 mmol/L (136-145)
[2023-04-07 04:26] VITALS: BP 189/74; PULSE 65; RESP 16; TEMP 36.4; O2SAT 100
[2023-04-07 05:51] LABS: Absolute Lymphocyte Count 3.02 X10^3/uL (0.83-4.51); Absolute Neutrophil Count 5.1 X10^3/uL (2.0-7.7); Basophil# 0.07 X10^3/uL; Basophil% 0.8 % (0-1); Eosinophil# 0.22 X10^3/uL; Eosinophils% 2.4 % (0-5); Hematocrit 43.5 % (40-54); Hemoglobin 14.3 g/dL (13.0-16.5); Lymphocyte # 3.02 X10^3/ul (0.83-4.51); Lymphocyte % 32.4 % (19-41); Mean Corp Hgb Conc 32.9 g/dL (32-36); Mean Corpuscular Hgb 30.6 pg (27.0-32.0); Mean Corpuscular Volume 92.9 fL (80-94); Mean Platelet Vol. 9.9 fl (6.2-12.0); Monocyte# 0.92 X10^3/uL; Monocyte% 9.9 % (0-10); NRBC Flagged by Analyzer 0 % (0-5); Neutrophil # 5.05 X10^3/uL (2.7-7.7); Platelet Count 248 K/mm3 (150-450); RBC Distribution Width CV 13.2 % (11.6-14.6); RBC Distribution Width SD 44.7 fl (35.1-43.9); Red Blood Count 4.68 M/mm3 (4.6-6.2); White Blood Count 9.3 K/mm3 (4.4-11.0)
[2023-04-07 06:39] LABS: ALB/GLOB Ratio 1.2 RATIO (0.9-2.4); AST(SGOT) 28 U/L (15-37); Alanine Aminotransfer ALT/SGPT 38 U/L (16-61); Albumin, Serum 3.7 g/dL (3.2-5.0); Alkaline Phosphatase 38 U/L (45-117); Anion Gap 5 (5-15); BUN 10 mg/dL (7-18); BUN/Creat Ratio 11.8 RATIO (10-20); Calcium,Total 8.3 mg/dL (8.5-10.1); Chloride 108 mmol/L (98-107); Creatinine, Serum 0.85 mg/dL (0.70-1.30); EST Glomerular Filtration Rate 113 mL/min (>60); Est Glom Filt Rate - Afr Amer 136 mL/min (>60); Estimated Creatinine Clearance 151.88 ml/min; Globulin 3.1 g/dL (2.2-4.2); Glucose 90 mg/dL (74-106); Potassium 3.5 mmol/L (3.5-5.1); Protein, Total 6.8 g/dL (6.4-8.2); Sodium Level 139 mmol/L (136-145)
--- NOTE | 2023-04-07 07:27 | PCM.PN.HOSP ---
Reason for Visit Reason for Visit: Diagnoses Sedative, hypnotic or anxiolytic abuse, uncomplicated (04/07/23) Other psychoactive substance abuse, uncomplicated (04/07/23) Subjective Subjective 32 old gentleman with polysubstance dependence presented today emergency department with plan to undergo medical stabilization from chronic benzodiazepine use Objective Data Objective Data Vital Signs: Vital Signs Temp Pulse Resp BP Pulse Ox O2 Del Method 97.5 F L 65 16 189/74 H 100 Room Air 04/07/23 04:26 04/07/23 04:26 04/07/23 04:26 04/07/23 04:26 04/07/23 04:26 04/07/23 05:17 Oxygen Delivery Method Room Air Weight: 130 kg Body Mass Index (BMI) 35.8 Intake & Output: Intake and Output for Last 24 Hours 04/05/23 04/06/23 04/07/23 23:59 23:59 23:59 Intake Total Balance Lab / Micro Data 04/07/23 05:10 04/07/23 05:10 Labs: Laboratory Results - last 24 hr 04/06/23 22:40: Sodium 139, Potassium 3.7, Chloride 107, Carbon Dioxide 28.0, Anion Gap 4 L, BUN 11, Creatinine 0.96, Estim Creat Clear Calc 134.48, Est GFR (MDRD) Af Amer 119, Est GFR (MDRD) Non-Af 98, BUN/Creatinine Ratio 11.5, Glucose 98, Calcium 8.5, Total Bilirubin 0.50, AST 27, ALT 45, Alkaline Phosphatase 45, Total Protein 7.6, Albumin 4.2, Globulin 3.4, Albumin/Globulin Ratio 1.2, Urine Opiates Screen NEGATIVE, Urine Methadone Screen NEGATIVE, Ur Barbiturates Screen NEGATIVE, Ur Phencyclidine Scrn NEGATIVE, Ur Amphetamines Screen POSITIVE H, MDMA (Ecstasy) Screen NEGATIVE, U Benzodiazepines Scrn POSITIVE H, Urine Cocaine Screen NEGATIVE, U Cannabinoids Screen POSITIVE H, Ur Drug Screen Comment , Ethyl Alcohol < 3.0 04/07/23 01:05: PT 13.0, INR 1.0, Sodium 139, Potassium 3.9, Chloride 108 H, Carbon Dioxide 27.0, Anion Gap 4 L, BUN 11, Creatinine 0.96, Estim Creat Clear Calc 134.48, Est GFR (MDRD) Af Amer 118, Est GFR (MDRD) Non-Af 97, BUN/Creatinine Ratio 11.4, Glucose 96, Calcium 8.9, Total Bilirubin 0.50, AST 31, ALT 44, Alkaline Phosphatase 44 L, Total Protein 7.4, Albumin 4.1, Globulin 3.3, Albumin/Globulin Ratio 1.2 04/07/23 05:10: WBC 9.3, RBC 4.68, Hgb 14.3, Hct 43.5, MCV 92.9, MCH 30.6, MCHC 32.9, RDW Std Deviation 44.7 H, RDW Coeff of [place] 13.2, Plt Count 248, MPV 9.9, Immature Gran % (Auto) 0.500, Neut % (Auto) 54.0, Lymph % (Auto) 32.4, [place] % (Auto) 9.9, Eos % (Auto) 2.4, Baso % (Auto) 0.8, Absolute Neuts (auto) 5.1, Absolute Lymphs (auto) 3.02, Nucleated RBC % 0, Sodium 139, Potassium 3.5, Chloride 108 H, Carbon Dioxide 26.0, Anion Gap 5, BUN 10, Creatinine 0.85, Estim Creat Clear Calc 151.88, Est GFR (MDRD) Af Amer 136, Est GFR (MDRD) Non-Af 113, BUN/Creatinine Ratio 11.8, Glucose 90, Calcium 8.3 L, Total Bilirubin 0.60, AST 28, ALT 38, Alkaline Phosphatase 38 L, Total Protein 6.8, Albumin 3.7, Globulin 3.1, Albumin/Globulin Ratio 1.2 Physical Exam Narrative GENERAL: cooperative HEENT: Atraumatic; normocephalic EYES; Anicteric, Normal Conjunctiva NECK; supple, normal thyroid, RESPIRATORY: Diminished to auscultation CARDIOVASCULAR: Regular S1 S2, GI: soft, normoactive bowel sounds, : No Renal angle tenderness; EXTREMITIES: No edema, no clubbing, MUSCULOSKELETAL: no muscle wasting NEURO: Awake; no lateralizing signs. SKIN: No Rash PSYCH; Flat affect Assessment & Plan Assessment/Plan (1) Benzodiazepine abuse: PLAN: Plan 32 old gentleman with polysubstance dependence presented today emergency department with plan to undergo medical stabilization from chronic benzodiazepine use 1. Chronic benzodiazepine use with withdrawal ? Admitted to monitored bed managed with phenobarb taper 2. Polysubstance dependence ? Including methamphetamine marijuana as well as benzodiazepines counseled on cessation 3. Tobacco dependence - Counseled on cessation, offered nicotine patch for tobacco cravings 4. DVT prophylaxis ? Low risk to encourage early ambulation Time spent in the patient's overall evaluation,decision-making process, review of diagnostic data, adjustment of management, discussion with other providers, nursing nursing and ancillary staff involved in patient's care documentation, 35 Minutes Charges/Coding Visit Charges Inpatient E&M: 08651 Subs Hosp L2
[2023-04-07 09:20] VITALS: BP 142/72; PULSE 66; RESP 18; TEMP 36.6; O2SAT 100
[2023-04-07] MEDS: Folic Acid 1 MG Tablet PO (09:23)
[2023-04-07] MEDS: Thiamine Hydrochloride 100 MG Tablet PO (09:23)
[2023-04-07] MEDS: Phenobarbital 32.4 MG Tablet 64.8 MG PO ×4 (09:35→21:17)
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
[2023-04-07 15:20] VITALS: BP 127/78; PULSE 69; RESP 18; TEMP 36.6; O2SAT 98
--- NOTE | 2023-04-07 17:19 | ADDICTION ---
This nurse met with client who was sleeping in bed. He is pleasant and cooperative, willing to participate in treatment planning. He is a 32 year old male who reports daily use of BZO/Methamphetamine/Cocaine, he also binge drinks 2-3 times a week. He reports a h/o opioid use, last use was 2 years. He was able to detox at home from opioids. He shared he met a female 6 days ago who suggested they both go to detox. This is his first time in detox and seeking AoD treatment. Denies involvement in 12-step community. He reports sober support includes is his aunt and a few cousins. He verbalizes an interest in residential treatment. He does have his own residence. He is unemployed at this time. He has 2 small children who are with their mother. Client does have court cases in the near future regarding visitation. Client has agreed to complete a walk-in assessment at [facility] to [facility] Monday04/10/23 during walk-in hours.
[2023-04-07 21:20] VITALS: BP 169/72; PULSE 71; RESP 15; TEMP 36.6; O2SAT 99
[2023-04-08] MEDS: Phenobarbital 32.4 MG Tablet 64.8 MG PO ×6 (01:34→21:04)
[2023-04-08 03:20] VITALS: BP 135/79; PULSE 63; RESP 16; TEMP 36.7; O2SAT 99
--- NOTE | 2023-04-08 08:15 | PCM.PN.HOSP ---
Reason for Visit Reason for Visit: Diagnoses Sedative, hypnotic or anxiolytic abuse, uncomplicated (04/07/23) Other psychoactive substance abuse, uncomplicated (04/07/23) Subjective Subjective Seen tolerating the phenobarb taper well so far Objective Data Objective Data Vital Signs: Vital Signs Temp Pulse Resp BP Pulse Ox O2 Del Method 98.0 F 63 16 135/79 H 99 Room Air 04/08/23 03:20 04/08/23 03:20 04/08/23 03:20 04/08/23 03:20 04/08/23 03:20 04/08/23 03:20 Oxygen Delivery Method Room Air Weight: 130 kg Body Mass Index (BMI) 35.8 Intake & Output: Intake and Output for Last 24 Hours 04/06/23 04/07/23 04/08/23 23:59 23:59 23:59 Intake Total 510 / 910 400 / 400 Balance 510 / 910 400 / 400 Lab / Micro Data 04/07/23 05:10 04/07/23 05:10 Physical Exam Narrative GENERAL: cooperative HEENT: Atraumatic; normocephalic EYES; Anicteric, Normal Conjunctiva NECK; supple, normal thyroid, RESPIRATORY: Diminished to auscultation CARDIOVASCULAR: Regular S1 S2, GI: soft, normoactive bowel sounds, : No Renal angle tenderness; EXTREMITIES: No edema, no clubbing, MUSCULOSKELETAL: no muscle wasting NEURO: Awake; no lateralizing signs. SKIN: No Rash PSYCH; Flat affect Assessment & Plan Assessment/Plan (1) Benzodiazepine abuse: PLAN: Plan 32 old gentleman with polysubstance dependence presented today emergency department with plan to undergo medical stabilization from chronic benzodiazepine use 1. Chronic benzodiazepine use with withdrawal ? Admitted to monitored bed managed with phenobarb taper 2. Polysubstance dependence ? Including methamphetamine marijuana as well as benzodiazepines counseled on cessation 3. Tobacco dependence - Counseled on cessation, offered nicotine patch for tobacco cravings 4. DVT prophylaxis ? Low risk to encourage early ambulation Time spent in the patient's overall evaluation,decision-making process, review of diagnostic data, adjustment of management, discussion with other providers, nursing nursing and ancillary staff involved in patient's care documentation, 35 Minutes Charges/Coding Visit Charges Inpatient E&M: 05384 Subs Hosp L2
[2023-04-08 09:20] VITALS: BP 143/67; PULSE 64; RESP 18; TEMP 36.4; O2SAT 100
[2023-04-08] MEDS: Folic Acid 1 MG Tablet PO (09:54)
[2023-04-08] MEDS: Thiamine Hydrochloride 100 MG Tablet PO (09:54)
--- NOTE | 2023-04-08 10:46 | ADDICTION ---
This insurance underwriter sales met with gilmar to confirm d/c planning. Client will follow-up with [facility] Monday04/10/23 for walk-in assessment. He is expecting to be d/c'd tomorrow 04/11/23. Client assisted/signed in completing D/C plan. No questions/concerns noted. D/C plan placed in chart.
[2023-04-08 15:20] VITALS: BP 149/78; PULSE 66; RESP 18; TEMP 36.7; O2SAT 98
[2023-04-08 21:20] VITALS: BP 147/76; PULSE 74; RESP 16; TEMP 36.6; O2SAT 100
[2023-04-09] MEDS: Phenobarbital 32.4 MG Tablet 64.8 MG PO ×2 (01:08→05:06)
[2023-04-09 03:20] VITALS: BP 138/78; PULSE 60; RESP 18; TEMP 36.6; O2SAT 100
--- NOTE | 2023-04-09 07:20 | PCM.PN.HOSP ---
Reason for Visit Reason for Visit: Diagnoses Sedative, hypnotic or anxiolytic abuse, uncomplicated (04/07/23) Other psychoactive substance abuse, uncomplicated (04/07/23) Subjective Subjective Patient seen symptoms significantly improved. Patient requesting to be discharged home later this evening Objective Data Objective Data Vital Signs: Vital Signs Temp Pulse Resp BP Pulse Ox O2 Del Method 97.8 F 60 18 138/78 H 100 Room Air 04/09/23 03:20 04/09/23 03:20 04/09/23 03:20 04/09/23 03:20 04/09/23 03:20 04/09/23 03:20 Oxygen Delivery Method Room Air Weight: 130 kg Body Mass Index (BMI) 35.8 Intake & Output: Intake and Output for Last 24 Hours 04/07/23 04/08/23 04/09/23 23:59 23:59 23:59 Intake Total 510 / 910 1000 / 1000 480 / 480 Balance 510 / 910 1000 / 1000 480 / 480 Lab / Micro Data 04/07/23 05:10 04/07/23 05:10 Physical Exam Narrative GENERAL: cooperative HEENT: Atraumatic; normocephalic EYES; Anicteric, Normal Conjunctiva NECK; supple, normal thyroid, RESPIRATORY: Diminished to auscultation CARDIOVASCULAR: Regular S1 S2, GI: soft, normoactive bowel sounds, : No Renal angle tenderness; EXTREMITIES: No edema, no clubbing, MUSCULOSKELETAL: no muscle wasting NEURO: Awake; no lateralizing signs. SKIN: No Rash PSYCH; Flat affect Assessment & Plan Assessment/Plan (1) Benzodiazepine abuse: PLAN: Plan 32 old gentleman with polysubstance dependence presented today emergency department with plan to undergo medical stabilization from chronic benzodiazepine use 1. Chronic benzodiazepine use with withdrawal ? Admitted to monitored bed managed with phenobarb taper 2. Polysubstance dependence ? Including methamphetamine marijuana as well as benzodiazepines counseled on cessation 3. Tobacco dependence - Counseled on cessation, offered nicotine patch for tobacco cravings 4. DVT prophylaxis ? Low risk to encourage early ambulation Time spent in the patient's overall evaluation,decision-making process, review of diagnostic data, adjustment of management, discussion with other providers, nursing nursing and ancillary staff involved in patient's care documentation, 35 Minutes Charges/Coding Visit Charges Inpatient E&M: 43666 Subs Hosp L2
--- NOTE | 2023-04-09 08:40 | PCM.DC.SUM ---
Providers Date of Admission: 04/07/23 Date of Discharge: 04/09/23 Primary Care Physician: Oksana Primary Care Phys Reason For Visit: BENZODIAZEPINE WITHDRAWAL Diagnosis Discharge Diagnosis (1) Benzodiazepine abuse: Status: Acute Code(s): F13.10 - Sedative, hypnotic or anxiolytic abuse, uncomplicated Plan 32 old gentleman with polysubstance dependence presented today emergency department with plan to undergo medical stabilization from chronic benzodiazepine use 1. Chronic benzodiazepine use with withdrawal ? Admitted to monitored bed managed with phenobarb taper ? Patient was discharged home on gabapentin with plans for patient to follow-up with [facility] as outpatient within a week 2. Polysubstance dependence ? Including methamphetamine marijuana as well as benzodiazepines counseled on cessation 3. Tobacco dependence - Counseled on cessation, offered nicotine patch for tobacco cravings 4. DVT prophylaxis ? Low risk to encourage early ambulation Time spent in the patient's overall evaluation,decision-making process, review of diagnostic data, adjustment of management, discussion with other providers, nursing nursing and ancillary staff involved in patient's care documentation, 35 Minutes Medications at Discharge Home Medications gabapentin 100 mg capsule (Neurontin) 100 mg PO TID 14 days #42 caps 04/09/23 Hospital Course Summary of Care Provided Minutes Spent on Discharge: 35 Weight / BMI Weight Weight: 130 kg Body Mass Index (BMI) 35.8 ABG / Lab / Microbiology Data 04/07/23 05:10 04/07/23 05:10 D/C Instructions Discharge Diet: No restrictions Discharge Activity: Return to Normal Activity Call your doctor if you observe: Fever of 101 or Higher, Shortness of breath, Fainting spells and Chest pain Meaningful Use Info Meaningful Use Diagnoses (Choose all that apply): None applicable Discharge Plan Admission Admit Date/Time: 04/07/23 00:16 Attending Provider: Ned Ferrari Primary Care Provider: Care Physician,No Primary Consulting Providers: Awa Peralta Discharge Orders/Prescriptions Prescriptions: New gabapentin [Neurontin] 100 mg capsule 100 mg PO TID 14 Days Qty: 42 0RF Other Ambulatory Orders: RAMP - Benzodiazepine Use (Routine) Location: None Selected Ordered By: Dr. Ned Ferrari RAMP - Benzodiazepine Use (Routine) Location: None Selected Ordered By: Dr. Ned Ferrari Referrals / Follow Up: Care Physician,No Primary [Primary Care Provider] - Disposition Disposition (needs filled in before D/C Order can be placed): Home, Self Care Charges/Coding Visit Charges Inpatient E&M: 50419 Disch Hosp >30min
[2023-04-09 09:20] VITALS: BP 130/87; PULSE 74; RESP 18; TEMP 36.7; O2SAT 96
[2023-04-09] MEDS: Folic Acid 1 MG Tablet PO (10:24)
[2023-04-09] MEDS: Thiamine Hydrochloride 100 MG Tablet PO (10:24)
[2023-04-09 10:39] VITALS: BP 130/87; PULSE 74; RESP 18; TEMP 36.7; O2SAT 96
== END 2023-04-09 12:35 | disposition home or self-care (01) | DRG 776 ==
LOC: ED 23:33 → PCU 04-07 00:20
PROVIDERS: Admitting Provider Internal Medicine; Emergency Provider Emergency Medicine; Visit Provider Internal Medicine
DX: F13.239 Sedative, hypnotic or anxiolytic dependence with withdrawal, unspecified (principal); F12.20 Cannabis dependence, uncomplicated; F15.20 Other stimulant dependence, uncomplicated; F17.210 Nicotine dependence, cigarettes, uncomplicated
CPT/HCPCS: 36415; 80053; 80307; 82077; 85025; 85610; 97802; 99283

== ENCOUNTER 2023-05-22 08:01 | Emergency (ER) | payer MEDICAID, SELFPAY ==
[2023-05-22 08:02] VITALS: BP 167/88; PULSE 102; RESP 16; TEMP 36.3; O2SAT 100; BMI 38.9
--- NOTE | 2023-05-22 08:08 | EDS_ITS ---
HPI History of Present Illness Chief Complaint: General Illness Informant: patient Onset/Context/Timing Onset: Today Context: Sudden Onset Timing: Continuous Quality: Foggy Location: Generalized Worsened by: Driving Relieved by: Nothing Narrative Narrative: Patient presents with lightheadedness that began this morning. Patient states he feels foggy . Patient states this got worse while he was driving to work today. Patient states his vision became blurry. Patient states he has had some diarrhea recently. Patient admits to some decreased urine output. Patient states he is concerned that he might be dehydrated. Patient denies any nausea or vomiting. Patient denies any fevers or chills. Patient denies any chest pain or shortness of breath. Patient denies any palpitations. PFSH PFSH Medical History no medical history no medical history Home Medications gabapentin 100 mg capsule (Neurontin) 100 mg PO TID 14 days #42 caps 04/09/23 [Rx Last Taken Unknown] Allergy/AdvReac Type Severity Reaction Status Date / Time No Known Allergies Allergy Verified 05/22/23 08:03 Surgical History Hx of tonsillectomy Social History household members: spouse Smoking Status: Current every day smoker tobacco type: cigarettes substance use type: does not use ROS ROS ED Constitutional Constitutional ED: Denies chills or fever(s) Eyes Eyes: Reports blurry vision; Denies diplopia ENT ENT ED: Denies rhinorrhea or sore throat Cardiovascular Cardiovascular: Denies chest pain or palpitations Respiratory/Chest Respiratory/Chest: Denies cough or dyspnea Gastrointestinal Gastrointestinal: Reports diarrhea; Denies nausea or vomiting Genitourinary Genitourinary ED: Denies dysuria or hematuria Musculoskeletal Musculoskeletal: Denies back pain or neck pain Integumentary Denies abscess or rash Neurologic Neurologic: Denies headache(s) or weakness Allergic/Immunologic Allergic/Immunologic ED: Denies mouth swelling or urticaria EXAM Physical Exam Const Vital Signs: 05/22/23 08:02 05/22/23 08:02 05/22/23 09:04 Temperature 97.3 F L Temperature Source Temporal Pulse Rate 102 H Pulse Rate [Lying] 94 Pulse Rate [Sitting (for 1 minute prior to obtaining)] 86 Pulse Rate [Standing (for 1 minute prior to obtaining)] 92 Respiratory Rate 16 Respiratory Pattern Normal Blood Pressure 167/88 H Blood Pressure [Lying] 174/65 H Blood Pressure [Sitting (for 1 minute prior to obtaining)] 162/113 H Blood Pressure [Standing (for 1 minute prior to obtaining)] 149/67 H Blood Pressure Mean 114 Blood Pressure Mean [Lying] 101 Blood Pressure Mean [Sitting (for 1 minute prior to obtaining)] 129 Blood Pressure Mean [Standing (for 1 minute prior to obtaining)] 94 Pulse Ox 100 Oxygen Delivery Method Room Air Positive well nourished, well developed and obese General Appearance ED: well developed and NAD Nutritional Appearance: obese HEENT Reports moist mucous membranes Neck supple and no JVD Chest Wall inspection of chest normal and palpation of chest normal Resp normal respiratory effort and clear to auscultation bilaterally Cardio regular rate and regular rhythm GI non-tender and non-distended Palpation: soft Extremity normal to inspection Neuro oriented x3, CN's II-XII intact bilaterally and no sensory deficits noted Sensorium / Orientation: alert Motor Exam: strength 5/5 throughout Psych mental status grossly normal MDM MDM MDM Narrative Medical decision making narrative: Differential diagnosis includes dehydration, electrolyte abnormality, viral illness, and anemia. CBC will be obtained to assess for leukocytosis and anemia. Basic metabolic profile will be obtained to assess for electrolyte abnormality and renal function. Urinalysis will be obtained to assess for urinary tract infection and hematuria. Lab Data Attestation: I reviewed the patient's lab results. Lab results narrative: CBC was reviewed. Hemoglobin was slightly elevated at 16.6. The remainder was within normal limits. Basic metabolic profile was reviewed and was essentially within normal limits. Urinalysis was reviewed. There is no evidence of urinary tract infection or hematuria. Labs: Laboratory Results - last 24 hr 05/22/23 05/22/23 08:40 09:25 WBC 9.4 RBC 5.52 Hgb 16.6 H Hct 50.7 MCV 91.8 MCH 30.1 MCHC 32.7 RDW Std Deviation 43.1 RDW Coeff of [place] 12.7 Plt Count 256 MPV 9.6 Immature Gran % (Auto) 0.400 Neut % (Auto) 62.8 Lymph % (Auto) 20.6 [place] % (Auto) 13.8 H Eos % (Auto) 1.5 Baso % (Auto) 0.9 Absolute Neuts (auto) 5.9 Absolute Lymphs (auto) 1.93 Nucleated RBC % 0 Sodium 139 Potassium 3.7 Chloride 106 Carbon Dioxide 29.0 Anion Gap 4 L BUN 10 Creatinine 1.11 Estim Creat Clear Calc 116.30 Est GFR (MDRD) Af Amer 100 Est GFR (MDRD) Non-Af 83 BUN/Creatinine Ratio 9.0 L Glucose 92 Calcium 9.0 Urine Color Yellow Urine Clarity Sl. Cloudy Urine pH 8.0 Ur Specific [place] 1.010 Urine Protein 30 H Urine Glucose (UA) Normal Urine Ketones 5 H Urine Occult Blood Negative Urine Nitrite Negative Urine Bilirubin Negative Urine Urobilinogen 1 H Ur Leukocyte Esterase 25 H Urine RBC 0 SEEN Urine WBC 0-5 SEEN Ur Squamous Epith Cells 0 SEEN Urine Bacteria 0 SEEN Urine Mucus 0 SEEN Treatment and Re-Evaluation :: Patient was given IV fluids. Orthostatic vital signs were obtained. Patient's blood pressure did drop with standing. Patient was given a repeat bolus of normal saline. Patient was advised of his findings. Patient was instructed to drink plenty of fluids. Patient was instructed to follow-up with his primary care physician in 5 to 7 days. Patient understood and was agreeable with the plan. All questions were answered. Discharge Plan Triage Chief Complaint: General Illness ED Provider: Miles Rubin Dx/Rx/DC Orders Clinical Impression: Orthostatic hypotension, Mild dehydration Instructions: ED Dehydration (Adult), ED Hypotension, Orthostatic Prescriptions: No Action gabapentin [Neurontin] 100 mg capsule 100 mg PO TID 14 Days Qty: 42 0RF Stand Alone Forms: ED Work / School Excuse Primary Care Provider: Care Physician,No Primary Referrals: Shea Guy MD [Med Staff - Active Staff] - 5-7 Days Care Physician,No Primary [Primary Care Provider] - Disposition Disposition: Home, Self Care
[2023-05-22] MEDS: 0.9% Normal Saline (1000mL) 1,000 ML 1000 ML IV ×2 (08:40→10:51)
[2023-05-22 08:49] LABS: Absolute Lymphocyte Count 1.93 X10^3/uL (0.83-4.51); Absolute Neutrophil Count 5.9 X10^3/uL (2.0-7.7); Basophil# 0.08 X10^3/uL; Basophil% 0.9 % (0-1); Eosinophil# 0.14 X10^3/uL; Eosinophils% 1.5 % (0-5); Hematocrit 50.7 % (40-54); Hemoglobin 16.6 g/dL (13.0-16.5); Lymphocyte # 1.93 X10^3/ul (0.83-4.51); Lymphocyte % 20.6 % (19-41); Mean Corp Hgb Conc 32.7 g/dL (32-36); Mean Corpuscular Hgb 30.1 pg (27.0-32.0); Mean Corpuscular Volume 91.8 fL (80-94); Mean Platelet Vol. 9.6 fl (6.2-12.0); Monocyte# 1.29 X10^3/uL; Monocyte% 13.8 % (0-10); NRBC Flagged by Analyzer 0 % (0-5); Neutrophil # 5.87 X10^3/uL (2.7-7.7); Neutrophil % 62.8 % (47-70); Platelet Count 256 K/mm3 (150-450); RBC Distribution Width CV 12.7 % (11.6-14.6); RBC Distribution Width SD 43.1 fl (35.1-43.9); Red Blood Count 5.52 M/mm3 (4.6-6.2); White Blood Count 9.4 K/mm3 (4.4-11.0)
--- OUTSIDE RECORDS SUMMARY | 2023-05-22 08:56 | XMS RPT_ITS | CCD ---
Author Name Unknown Address [address] [place] [address] Organization [facility] Care Team Providers Care Group Exercise Manager Name Role Phone AURA GARCIA Unavailable Unavailable Results Test Name Value Interpretation Reference Range Facil ity Encounters Encounter Date Encounter Type Care Provider Facility Start: 12-01-2016 End: 12-01-2016 Ambulatory AURA GARCIA [facility] Summary Purpose Family History No Family History Records Found Advance Directives No Advanced Directives Records Found Additional Source Comments (unrecognized sect ion and content) No Status Records Found INFORMATION SOURCE (unrecogn ized section and content) FOR RECORDS PERTAINING TO PATIENTS WHO ARE OR HAVE BEEN ENROLLED IN A CHEMICAL DEPENDENCY/SUBSTANCEABUSE PROGRAM, SOME INFORMATION MAY BE OMITTED. This clinical summary was aggregated from multiple sources. Caution should be exercised in using it in the provision of clinical care. This summary normalizes information from multiple sources, and as a consequence, information in this document may materially change the coding, format and clinical context of patient data. In addition, data may be omitted in some cases. CLINICAL DECISIONS SHOULD BE BASED ON THE PRIMARY CLINICAL RECORDS. [employer] provides no warranty or guarantee of the accuracy or completeness of information in this document.
[2023-05-22 09:04] VITALS: BP 149/67; BP 162/113; BP 174/65; PULSE 86; PULSE 92; PULSE 94
[2023-05-22 09:09] LABS: Anion Gap 4 (5-15); BUN 10 mg/dL (7-18); Chloride 106 mmol/L (98-107); Creatinine, Serum 1.11 mg/dL (0.70-1.30); EST Glomerular Filtration Rate 83 mL/min (>60); Est Glom Filt Rate - Afr Amer 100 mL/min (>60); Glucose 92 mg/dL (74-106); Potassium 3.7 mmol/L (3.5-5.1); Sodium Level 139 mmol/L (136-145)
[2023-05-22 09:34] LABS: Bacteria 0 SEEN /hpf (None Seen); Mucous, Urine 0 SEEN /hpf (<or=2+); Red Blood Cells-Urine 0 SEEN /hpf (0-5); Squamous Epithelial Cells - UA 0 SEEN /hpf (0-5)
[2023-05-22 09:38] LABS: Color, Urine Yellow (Yellow); Glucose, Dipstick Normal (Normal); Ketone-Dipstick 5 mg/dl (Negative); Leukocyte Esterase-Dipstick 25 /ul (Negative); Nitrite-Dipstick Negative (Negative); Occult Blood-Urine Negative /ul (Negative); Protein-Dipstick 30 mg/dl (Negative); Urine Bilirubin Dipstick Negative (Negative); Urine Clarity Sl. Cloudy (Clear); Urine Urobilinogen 1 mg/dl (Normal)
[2023-05-22 09:44] LABS: White Blood Cells 0-5 SEEN /hpf (0-5)
[2023-05-22 11:44] VITALS: BP 159/60
== END 2023-05-22 11:47 | disposition home or self-care (01) ==
PROVIDERS: Emergency Provider Emergency Medicine; Visit Provider Emergency Medicine
DX: I95.1 Orthostatic hypotension (principal); E86.0 Dehydration; F17.210 Nicotine dependence, cigarettes, uncomplicated; R19.7 Diarrhea, unspecified; E66.9 Obesity, unspecified
CPT/HCPCS: 80048; 81001; 85025; 96360; 96361; 99284; J7030; A4216

== ENCOUNTER 2024-12-03 01:24 | Emergency (ER) | payer MEDICAID, SELFPAY ==
[2024-12-03 01:25] VITALS: BP 180/82; PULSE 81; RESP 16; TEMP 37.1; O2SAT 100; BMI 39.4
--- OUTSIDE RECORDS SUMMARY | 2024-12-03 02:01 | XMS RPT_ITS | CCD ---
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 poison heri dermatitis. IDENTIFYING POISON HERI "Leaves of three, let them be" is a phrase often used to identify plants that cause poison heri dermatitis. Generally, poison heri and poison oak have three leaves with flowering branches on a single stem. Poison sumac has five, seven, or more leaves that angle upward toward the top of the stem. Some types of poison heri produce a green or off-white fruit in eliseo, and in some cases, black dots form on the plants' leaves. It is not always possible to identify the plant by the leaves alone since the appearance can vary depending upon the season, growth cycle, region, and climate. Poison heri, oak, and sumac plants grow in many areas across the [facility] and throughout the world. [place] of the [facility], poison heri commonly grows as a climbing vine. In the [place] area and west, poison heri tends to grow low to the ground as a shrub. Poison oak most often grows west of the [facility], and poison sumac inhabits boggy areas in the southeastern part of the [place]. The plants are not usually found in areas at high elevations or in desert climates. POISON HERI SIGNS AND SYMPTOMS After contact with urushiol, approximately 50 percent of people develop signs and symptoms of poison heri dermatitis. The symptoms and severity differ from person to person. The most common signs and symptoms of poison heri dermatitis are: Intense itching Skin swelling Skin redness These symptoms usually develop within four hours to four days after exposure to the urushiol. After the initial symptoms, you will develop fluid-filled blisters in a line or streak-like pattern. The symptoms are worst within 1 to 14 days after touching the plant, but can develop up to 21 days later if you have never been exposed to urushiol before. The blisters can occur at different times in different people; blisters can develop on the arms several days after blisters on the hands developed. This does not mean that the reaction is spreading from one area of the body to the other. The fluid that leaks from blisters does not cause symptoms. Poison heri dermatitis is not contagious and cannot be passed from person to person. However, urushiol can be carried under fingernails and on clothes; if another person comes in contact with the urushiol, they can develop poison heri dermatitis. POISON HERI DIAGNOSIS Poison heri is usually diagnosed based upon how your skin looks. Further testing is not usually necessary. POISON HERI TREATMENT Poison heri dermatitis usually resolves within one to three weeks without treatment. Treatments that may help relieve the itching, soreness, and discomfort caused by poison heri dermatitis include: Skin treatments -- For some people, adding oatmeal to a bath, applying cool wet compresses, and applying calamine lotion may help to relieve itching. Once the blisters begin weeping fluid, astringents containing aluminum acetate (Jaylen's solution) and Domeboro may help to relieve the rash. Antihistamines -- Antihistamines may help to relieve itching caused by poison heri dermatitis. Some antihistamines make you sleepy while others do not. Antihistamines that make you sleepy (eg, diphenhydramine [Benadryl ]) may be helpful if you have trouble sleeping due to itching. Other formulas (eg, loratadine [Claritin ], cetirizine [Zyrtec ]) may be preferable for daytime. Steroid creams -- Steroid creams may be helpful if they are used during the first few days after symptoms develop. Low potency steroid creams, such as 1 percent hydrocortisone (available in the [place] without prescription) are not usually helpful. A stronger prescription formula may be helpful. Steroids -- If you develop severe symptoms or the rash covers a large area (especially on the face or genitals), you may need steroid pills or injections (eg, prednisone) to help relieve itching and swelling. Pills are usually given for 14 to 21 days, with the dosage slowly decreased over time. Antibiotics -- Skin infections are a potential complication of poison heri, especially if you scratch your skin. If you develop a skin infection because of poison heri dermatitis, you may need antibiotics to treat the infection. Other treatments -- An herbal therapy called jewelweed extract has been used to treat poison heri dermatitis, although it has not been proven effective. You should not use antihistamine creams or lotions, anesthetic creams containing benzocaine, or antibiotic creams containing neomycin or bacitracin to the skin. These creams or ointments could make the rash worse. POISON HERI PREVENTION The best way to prevent poison heri dermatitis is to identify and avoid the plants that cause it. These plants can irritate the skin year round, even during the winter months, and can still cause a reaction years after the plant dies. Wear protective clothing, including long sleeves and pants when working in areas where toxic plants may be found. Keep in mind that the resin and oils from the toxic plants can be carried on clothing, pets, and under fingernails. Wear heavy-duty vinyl gloves when doing yard work or gardening. The oils from toxic plants can seep through latex or rubber gloves. After coming in contact with poison heri, remove any contaminated clothing and gently wash (do not scrub or rub) you skin and under the fingernails with mild soap and water as soon as possible. Washing within two hours after exposure can reduce the likelihood and severity of symptoms; washing the skin after you have symptoms will not help. Creams and ointments that create a barrier between the skin and the urushiol oil may be somewhat effective for people who are frequently exposed to poison heri. Bentoquatam (Heri Block ) is one type of barrier cream that may prevent poison heri dermatitis. It must be reapplied every four hours and it leaves a eli residue on the skin. Avoid burning poisonous vegetation, which can disperse the plant particles in the smoke, irritate the skin, and cause poison heri dermatitis. documented in this encounter [facility] 11-29-2024 Note HNO ID: [id number] Author: CHUNG BAKER APRN.DIEUDONNE Service: ? Author Type: Nurse Practitioner Type: Progress Notes Filed: 11/29/2024 14:53 Note Text: November 29, 2024 Amy Beasley 1990 VIRTUAL VISIT PROGRESS NOTE This is a virtual visit. It required patient-provider interaction for the medical decision making as documented below. Informed verbal consent was obtained from this patient to communicate and provide care using virtual and other telecommunications tools. This patient has been explained the risks related to unauthorized disclosure or interception of personal health information and steps they can take to help protect their information. We have discussed that care provided through video or audio communication cannot replace the need for physical examination or an in person visit for some disorders or urgent problems and patient understands the need to seek urgent care in an Emergency Department as necessary. I have communicated my name and active licensure. The patient's identity and physical location were verified at the time of this visit. Either the patient or their legal food service sales representatives has been informed of the risks and benefits of -- and alternatives to -- treatment through a remote evaluation and consents to proceed with the evaluation remotely. Patient has agreed to the use of [employer] software for the generation of this note. Platform patient seen on: [facility] Video Visit platform Location of patient: [place] is a 33 year old male seen for Patient presents with: Rash HPI The patient is a 33-year-old male presenting with a poison sumac rash. Poison Sumac Rash: - Rash onset 2-3 days ago. - Rash is spreading despite use of creams and sprays. - Rash is located on both legs, arms, face, neck, and groin. - Denies using steroid cream. HISTORY REVIEWED (electronic chart updated): No past medical history on file. No past surgical history on file. No family history on file. Social History Tobacco Use Smoking status: Never Smokeless tobacco: Current Types: Chew Current Outpatient Medications Medication Sig predniSONE (DELTASONE) 20 mg tablet Take 2 tablets by mouth once daily for 5 days. triamcinolone acetonide (KENALOG) 0.1 % cream Apply 1 application to affected area two times a day for 10 days. hydrOXYzine pamoate (VISTARIL) 25 mg capsule Take 1 capsule by mouth three times a day as needed. fluticasone (FLONASE) 50 mcg/actuation nasal spray Use 2 Sprays in each nostril once daily. Rinse mouth after use. No current facility-administered medications for this visit. ALLERGIES No Known Allergies REVIEW OF SYSTEMS: Skin: (+) rash on arms, legs, face, neck, groin PHYSICAL EXAMINATION: VIDEO EXAM: (performed via video enabled technology) General: No acute distress. Skin: Erythematous papulovesicular rash on arms, legs, face, and neck. ASSESSMENT: (L25.5) Plant dermatitis (primary encounter diagnosis) PLAN: Encounter Diagnosis ICD-10-CM 1. Plant dermatitis L25.5 predniSONE (DELTASONE) 20 mg tablet triamcinolone acetonide (KENALOG) 0.1 % cream 1. Plant dermatitis (L25.5) - Extensive rash observed on arms, legs, neck, and face consistent with plant dermatitis. - Initiated Prednisone 40 mg orally once daily for 5 days; advised to take in the morning with food to minimize gastrointestinal upset and potential insomnia. - Prescribed topical steroid cream for application to affected areas, excluding the face; instructed to use for no more than 10 days. - Recommended ccru-hri-kiweogb topical steroid or Benadryl cream for facial lesions. - Advised tepid Epsom salt baths to aid in drying out the rash. - Suggested Claritin once daily for pruritus management; Benadryl at night if needed. - Prescriptions sent to [facility] in [place]. - Patient to monitor for reduction in new lesions and drying of existing rash; if symptoms persist beyond 10 days, advised to seek in-person evaluation. Return if symptoms worsen or fail to improve, for recheck with PCP. Patient Instructions - Take prednisone 40 mg (2 tablets) once each morning with a small meal for 5 days. - Apply the prescribed topical steroid cream to your body rash once or twice daily for up to 10 days; do not use this cream on your face. - For facial spots, use Benadryl cream or an pnqr-hsj-ndtpwob mild topical steroid. - Begin taking a non-drowsy antihistamine (Claritin) once daily to reduce itching; if you still itch at night, you may use Benadryl. - Take tepid Epsom salt baths as needed to help dry and soothe your rash. - back up scan coordinator your prednisone and steroid cream prescriptions at [facility] in [place] as arranged. - You should notice fewer new spots and gradual drying of existing lesions; avoid using the topical steroid longer than 10 days. - If you need this cream beyond 10 days or your rash does not improve, schedule an in-person evaluat (more content not included)... [facility] 11-29-2024 History of Present illness Narrative Images from the original note were not included. November 29, 2024 Amy Beasley 1990 VIRTUAL VISIT PROGRESS NOTE This is a virtual visit. It required patient-provider interaction for the medical decision making as documented below. Informed verbal consent was obtained from this patient to communicate and provide care using virtual and other telecommunications tools. This patient has been explained the risks related to unauthorized disclosure or interception of personal health information and steps they can take to help protect their information. We have discussed that care provided through video or audio communication cannot replace the need for physical examination or an in person visit for some disorders or urgent problems and patient understands the need to seek urgent care in an Emergency Department as necessary. I have communicated my name and active licensure. The patient's identity and physical location were verified at the time of this visit. Either the patient or their legal food service sales representatives has been informed of the risks and benefits of -- and alternatives to -- treatment through a remote evaluation and consents to proceed with the evaluation remotely. Patient has agreed to the use of [employer] software for the generation of this note. Platform patient seen on: [facility] Video Visit platform Location of patient: [place] is a 33 year old male seen for Patient presents with: Rash HPI The patient is a 33-year-old male presenting with a poison sumac rash. Poison Sumac Rash: - Rash onset 2-3 days ago. - Rash is spreading despite use of creams and sprays. - Rash is located on both legs, arms, face, neck, and groin. - Denies using steroid cream. HISTORY REVIEWED (electronic chart updated): No past medical history on file. No past surgical history on file. No family history on file. Social History Tobacco Use Smoking status: Never Smokeless tobacco: Current Types: Chew Current Outpatient Medications Medication Sig predniSONE (DELTASONE) 20 mg tablet Take 2 tablets by mouth once daily for 5 days. triamcinolone acetonide (KENALOG) 0.1 % cream Apply 1 application to affected area two times a day for 10 days. hydrOXYzine pamoate (VISTARIL) 25 mg capsule Take 1 capsule by mouth three times a day as needed. fluticasone (FLONASE) 50 mcg/actuation nasal spray Use 2 Sprays in each nostril once daily. Rinse mouth after use. No current facility-administered medications for this visit. ALLERGIES No Known Allergies REVIEW OF SYSTEMS: Skin: (+) rash on arms, legs, face, neck, groin PHYSICAL EXAMINATION: VIDEO EXAM: (performed via video enabled technology) General: No acute distress. Skin: Erythematous papulovesicular rash on arms, legs, face, and neck. ASSESSMENT: (L25.5) Plant dermatitis (primary encounter diagnosis) PLAN: Encounter Diagnosis ICD-10-CM 1. Plant dermatitis L25.5 predniSONE (DELTASONE) 20 mg tablet triamcinolone acetonide (KENALOG) 0.1 % cream 1. Plant dermatitis (L25.5) - Extensive rash observed on arms, legs, neck, and face consistent with plant dermatitis. - Initiated Prednisone 40 mg orally once daily for 5 days; advised to take in the morning with food to minimize gastrointestinal upset and potential insomnia. - Prescribed topical steroid cream for application to affected areas, excluding the face; instructed to use for no more than 10 days. - Recommended xhuj-mks-zzcmceu topical steroid or Benadryl cream for facial lesions. - Advised tepid Epsom salt baths to aid in drying out the rash. - Suggested Claritin once daily for pruritus management; Benadryl at night if needed. - Prescriptions sent to [facility] in [place]. - Patient to monitor for reduction in new lesions and drying of existing rash; if symptoms persist beyond 10 days, advised to seek in-person evaluation. Return if symptoms worsen or fail to improve, for recheck with PCP. Patient Instructions - Take prednisone 40 mg (2 tablets) once each morning with a small meal for 5 days. - Apply the prescribed topical steroid cream to your body rash once or twice daily for up to 10 days; do not use this cream on your face. - For facial spots, use Benadryl cream or an ynwm-nyr-mydibii mild topical steroid. - Begin taking a non-drowsy antihistamine (Claritin) once daily to reduce itching; if you still itch at night, you may use Benadryl. - Take tepid Epsom salt baths as needed to help dry and soothe your rash. - back up scan coordinator your prednisone and steroid cream prescriptions at [facility] as arranged. - You should notice fewer new spots and gradual drying of existing lesions; avoid using the topical steroid longer than 10 days. - If you need this cream beyond 10 days or your rash does not improve, schedule an in-person evaluation. - Monitor for stomach upset when taking prednisone; if you feel unusually energetic, continue to take it in the morning, not at night. EXPRESS CARE PATIENT INFO POISON HERI INTRODUCTION When the skin comes in direct contact with an irritating or allergy-causing substance, contact dermatitis can develop. Exposure to poison heri, poison oak, and poison sumac cause more cases of allergic contact dermatitis than all other plant families combined. People of all ethnicities and skin types are at risk for developing poison heri dermatitis. The severity of the reaction tends to decrease with age, especially in people who have had mild reactions in the past. People in occupations such as firefighting, forestry, and farming are at a higher risk of poison heri dermatitis because of repeated exposure to toxic plants. POISON HERI CAUSES Poison heri, poison oak, and poison sumac plants all contain a compound called urushiol, which is a light, colorless oil that is found on the fruit, leaves, stem, root, and sap of the plant. When urushiol is exposed to air, it turns brown and the plant leaves develop small black spots. There are several ways that you can be exposed to urushiol: By touching the sap or rubbing against the leaves of the toxic plant By touching something that has urushiol on it, such as animal fur or garden tools By breathing in smoke when toxic plants are burned Ginkgo fruit and the skin of mangoes also contain urushiol and can produce symptoms similar to poison heri dermatitis. IDENTIFYING POISON HERI "Leaves of three, let them be" is a phrase often used to identify plants that cause poison heri dermatitis. Generally, poison heri and poison oak have three leaves with flowering branches on a single stem. Poison sumac has five, seven, or more leaves that angle upward toward the top of the stem. Some types of poison heri produce a green or off-white fruit in eliseo, and in some cases, black dots form on the plants' leaves. It is not always possible to identify the plant by the leaves alone since the appearance can vary depending upon the season, growth cycle, region, and climate. Poison heri, oak, and sumac plants grow in many areas across the [facility] and throughout the world. East of the [facility], poison heri commonly grows as a climbing vine. In the [place] area and west, poison heri tends to grow low to the ground as a shrub. Poison oak most often grows west of the [facility], and poison sumac inhabits boggy areas in the southeastern part of the [facility]. The plants are not usually found in areas at high elevations or in desert climates. POISON HERI SIGNS AND SYMPTOMS After contact with urushiol, approximately 50 percent of people develop signs and symptoms of poison heri dermatitis. The symptoms and severity differ from person to person. The most common signs and symptoms of poison heri dermatitis are: Intense itching Skin swelling Skin redness These symptoms usually develop within four hours to four days after exposure to the urushiol. After the initial symptoms, you will develop fluid-filled blisters in a line or streak-like pattern. The symptoms are worst within 1 to 14 days after touching the plant, but can develop up to 21 days later if you have never been exposed to urushiol before. The blisters can occur at different times in different people; blisters can develop on the arms several days after blisters on the hands developed. This does not mean that the reaction is spreading from one area of the body to the other. The fluid that leaks from blisters does not cause symptoms. Poison heri dermatitis is not contagious and cannot be passed from person to person. However, urushiol can be carried under fingernails and on clothes; if another person comes in contact with the urushiol, they can develop poison heri dermatitis. POISON HERI DIAGNOSIS Poison heri is usually diagnosed based upon how your skin looks. Further testing is not usually necessary. POISON HERI TREATMENT Poison heri dermatitis usually resolves within one to three weeks without treatment. Treatments that may help relieve the itching, soreness, and discomfort caused by poison heri dermatitis include: Skin treatments -- For some people, adding oatmeal to a bath, applying cool wet compresses, and applying calamine lotion may help to relieve itching. Once the blisters begin weeping fluid, astringents containing aluminum acetate (Jaylen's solution) and Domeboro may help to relieve the rash. Antihistamines -- Antihistamines may help to relieve itching caused by poison heri dermatitis. Some antihistamines make you sleepy while others do not. Antihistamines that make you sleepy (eg, diphenhydramine [Benadryl ]) may be helpful if you have trouble sleeping due to itching. Other formulas (eg, loratadine [Claritin ], cetirizine [Zyrtec ]) may be preferable for daytime. Steroid creams -- Steroid creams may be helpful if they are used during the first few days after symptoms develop. Low potency steroid creams, such as 1 percent hydrocortisone (available in the [place] without prescription) are not usually helpful. A stronger prescription formula may be helpful. Steroids -- If you develop severe symptoms or the rash covers a large area (especially on the face or genitals), you may need steroid pills or injections (eg, prednisone) to help relieve itching and swelling. Pills are usually given for 14 to 21 days, with the dosage slowly decreased over time. Antibiotics -- Skin infections are a potential complication of poison heri, especially if you scratch your skin. If you develop a skin infection because of poison heri dermatitis, you may need antibiotics to treat the infection. Other treatments -- An herbal therapy called jewelweed extract has been used to treat poison heri dermatitis, although it has not been proven effective. You should not use antihistamine creams or lotions, anesthetic creams containing benzocaine, or antibiotic creams containing neomycin or bacitracin to the skin. These creams or ointments could make the rash worse. POISON HERI PREVENTION The best way to prevent poison heri dermatitis is to identify and avoid the plants that cause it. These plants can irritate the skin year round, even during the winter months, and can still cause a reaction years after the plant dies. Wear protective clothing, including long sleeves and pants when working in areas where toxic plants may be found. Keep in mind that the resin and oils from the toxic plants can be carried on clothing, pets, and under fingernails. Wear heavy-duty vinyl gloves when doing yard work or gardening. The oils from toxic plants can seep through latex or rubber gloves. After coming in contact with poison heri, remove any contaminated clothing and gently wash (do not scrub or rub) you skin and under the fingernails with mild soap and water as soon as possible. Washing within two hours after exposure can reduce the likelihood and severity of symptoms; washing the skin after you have symptoms will not help. Creams and ointments that create a barrier between the skin and the urushiol oil may be somewhat effective for people who are frequently exposed to poison heri. Bentoquatam (Heri Block ) is one type of barrier cream that may prevent poison heri dermatitis. It must be reapplied every four hours and it leaves a eli residue on the skin. Avoid burning poisonous vegetation, which can disperse the plant particles in the smoke, irritate the skin, and cause poison heri dermatitis. Medical Decision Making: Problems: Low: Acute, uncomplicated illness or injury Risk: Moderate: Drug management Medical Decision Making Level: 3 - Low -I have reviewed and updated with the patient: allergies, VS, current medications, Past Medical History,Past Surgical History,Past Family Medical History, Past Social History. - Patient education provided today. - Discussed with patient medications that are indicated and how to use the medications and what the potential side effects are. - Warning signs of worsening condition explained to patient, Red flags discussed - Patient in stable condition after questions answered and patient verbalizes understanding - Report to ED with any worsening symptoms or life-threatening concerns Chugn Mccollum APRN.MICROMATIC HONE OPERATOR documented in this encounter [facility] 11-28-2024 Gladis Fontenot APRN.DIEUDONNE - 11/28/2024 3:54 PM EDT Please take your blood pressure each morning as discussed If your numbers are generally at or below 140/80's, would continue lifestyle changes and monitoring. If your numbers are consistently above 140/80's, would recommend calling the appointment center and inquiring about a sooner appointment at a different location as discussed. documented in this encounter [facility] 11-28-2024 Note HNO ID: [id number] Author: GLADIS CORRAL APRN.DIEUDONNE Service: ? Author Type: Nurse Practitioner Type: Progress Notes Filed: 11/28/2024 15:54 Note Text: Telemedicine Visit - Distance Health Virtual Visit Note Patient seen on [email or web address] Video Visit platform. Location of patient: [place] I have communicated my name and active licensure. The patient's identity and physical location were verified at the time of this visit. Either the patient or their legal food service sales representatives has been informed of the risks and benefits of -- and alternatives to -- treatment through a remote evaluation and consents to proceed with the evaluation remotely. History of Present Illness Amy Beasley is a 33 year old male who is asking for a refill of his Lisinopril/HCTZ medication that was started for him when he was incarcerated. Reports he checks his BP's and they are around 130-80's while in correction they were 170/90's. History reviewed. No pertinent past medical history. History reviewed. No pertinent surgical history. History reviewed. No pertinent family history. Social History Tobacco Use Smoking status: Never Smokeless tobacco: Current Types: Chew Current Outpatient Medications Medication Sig hydrOXYzine pamoate (VISTARIL) 25 mg capsule Take 1 capsule by mouth three times a day as needed. fluticasone (FLONASE) 50 mcg/actuation nasal spray Use 2 Sprays in each nostril once daily. Rinse mouth after use. No current facility-administered medications for this visit. ALLERGIES No Known Allergies Video Exam (Examination performed via Video enabled technology) General appearance: Alert, oriented, pleasant, in NAD :Yes Ill appearing :No Lethargic appearing :No Respiratory distress :No ASSESSMENT/PLAN: 1. Hypertension, unspecified type - ICD9: 401.9, ICD10: I10 Don't have any data on his HTN and don't have evidence in the chart of the prescription. As a result, don't feel comfortable refilling the medication. Also feel some basic labs should be obtained in this situation, like kidney function. As a result, recommended he take his BP each morning and continue lifestyle changes. If his blood pressure is consistently around or below 140/80's, then recommended he continue this until his appointment next month. If his numbers are consistently higher, recommended he call appointment line and be more flexible with locations to get a sooner appointment and then can use his other appointment as a follow up. PLAN: - Red flags discussed for need for in person care - All questions answered Gladis Corral APRN.MICROMATIC HONE OPERATOR Differential Diagnoses - HTN Disposition The patient was discharged. [facility] 11-28-2024 History of Present illness Narrative Telemedicine Visit - Distance Health Virtual Visit Note Patient seen on [facility] Video Visit platform. Location of patient: [place] I have communicated my name and active licensure. The patient's identity and physical location were verified at the time of this visit. Either the patient or their legal food service sales representatives has been informed of the risks and benefits of -- and alternatives to -- treatment through a remote evaluation and consents to proceed with the evaluation remotely. History of Present Illness Amy Beasley is a 33 year old male who is asking for a refill of his Lisinopril/HCTZ medication that was started for him when he was incarcerated. Reports he checks his BP's and they are around 130-80's while in correction they were 170/90's. History reviewed. No pertinent past medical history. History reviewed. No pertinent surgical history. History reviewed. No pertinent family history. Social History Tobacco Use Smoking status: Never Smokeless tobacco: Current Types: Chew Current Outpatient Medications Medication Sig hydrOXYzine pamoate (VISTARIL) 25 mg capsule Take 1 capsule by mouth three times a day as needed. fluticasone (FLONASE) 50 mcg/actuation nasal spray Use 2 Sprays in each nostril once daily. Rinse mouth after use. No current facility-administered medications for this visit. ALLERGIES No Known Allergies Video Exam (Examination performed via Video enabled technology) General appearance: Alert, oriented, pleasant, in NAD :Yes Ill appearing :No Lethargic appearing :No Respiratory distress :No ASSESSMENT/PLAN: 1. Hypertension, unspecified type - ICD9: 401.9, ICD10: I10 Don't have any data on his HTN and don't have evidence in the chart of the prescription. As a result, don't feel comfortable refilling the medication. Also feel some basic labs should be obtained in this situation, like kidney function. As a result, recommended he take his BP each morning and continue lifestyle changes. If his blood pressure is consistently around or below 140/80's, then recommended he continue this until his appointment next month. If his numbers are consistently higher, recommended he call appointment line and be more flexible with locations to get a sooner appointment and then can use his other appointment as a follow up. PLAN: - Red flags discussed for need for in person care - All questions answered Gladis Corral APRN.DIEUDONNE Differential Diagnoses - HTN Disposition The patient was discharged. documented in this encounter [facility] 11-23-2024 Note HNO ID: [id number] Author: LUIS ANTONIO MONSON PA-C Service: ? Author Type: Physician Cotton Header Type: Progress Notes Filed: 11/23/2024 14:22 Note Text: Telemedicine Visit - Distance Health Virtual Visit Note Patient seen on [facility] Video Visit platform. Location of patient: [place] No primary care provider on file. I have communicated my name and active licensure. The patient's identity and physical location were verified at the time of this visit. Either the patient or their legal food service sales representatives has been informed of the risks and benefits of -- and alternatives to -- treatment through a remote evaluation and consents to proceed with the evaluation remotely. Subjective The patient is a 33-year-old male presenting for anxiety management. Anxiety: - Recently released from incarceration, during which he was started on Vistaril 25 mg daily for anxiety. - Reports medication was effective in managing symptoms. - Currently out of medication and seeking a refill. - Denies fevers, chills, nausea, or emesis. Constitutional: (-) fever, (-) chills Gastrointestinal: (-) nausea, (-) vomiting Objective There were no vitals taken for this visit. General: Alert AND oriented, no acute distress Skin: Normal HEENT: Pupils equal, round. Oral cavity, oropharynx clear = Assessment AND Plan 1. Anxiety disorder, unspecified type (F41.9) - Previously managed with Vistaril 25 mg once daily, which was effective. Prescribed 21 capsules of Vistaril 25 mg to be dispensed at [facility] in [place], [place]. Patient to follow up for further evaluation and management. Recording using [employer] software for draft documentation of the visit was discussed with the patient/authorized food service sales representatives; all questions welcomed and answered. Patient/authorized food service sales representatives agreed to proceed IF YOUR SYMPTOMS PERSIST OR WORSENING IN THE NEXT 3-5 DAYS THEN PLEASE FOLLOW UP WITH YOUR PCP - Red flags discussed for need for in person care - All questions answered Luis Antonio Monson PA-C History and Record Review External record(s) reviewed: prior outpatient record. Differential Diagnoses - anxiety is more likely for the following reason(s): suggested by HANDP - MDD is less likely for the following reason(s): HANDP not suggestive CODING: [facility] 11-23-2024 History of Present illness Narrative Telemedicine Visit - Distance Health Virtual Visit Note Patient seen on [facility] Video Visit platform. Location of patient: [place] No primary care provider on file. I have communicated my name and active licensure. The patient's identity and physical location were verified at the time of this visit. Either the patient or their legal food service sales representatives has been informed of the risks and benefits of -- and alternatives to -- treatment through a remote evaluation and consents to proceed with the evaluation remotely. Subjective The patient is a 33-year-old male presenting for anxiety management. Anxiety: - Recently released from incarceration, during which he was started on Vistaril 25 mg daily for anxiety. - Reports medication was effective in managing symptoms. - Currently out of medication and seeking a refill. - Denies fevers, chills, nausea, or emesis. Constitutional: (-) fever, (-) chills Gastrointestinal: (-) nausea, (-) vomiting Objective There were no vitals taken for this visit. General: Alert & oriented, no acute distress Skin: Normal HEENT: Pupils equal, round. Oral cavity, oropharynx clear = Assessment & Plan 1. Anxiety disorder, unspecified type (F41.9) - Previously managed with Vistaril 25 mg once daily, which was effective. Prescribed 21 capsules of Vistaril 25 mg to be dispensed at [facility] in [place], [place]. Patient to follow up for further evaluation and management. Recording using [employer] software for draft documentation of the visit was discussed with the patient/authorized food service sales representatives; all questions welcomed and answered. Patient/authorized food service sales representatives agreed to proceed IF YOUR SYMPTOMS PERSIST OR WORSENING IN THE NEXT 3-5 DAYS THEN PLEASE FOLLOW UP WITH YOUR PCP - Red flags discussed for need for in person care - All questions answered Luis Antonio Monson PA-C History and Record Review External record(s) reviewed: prior outpatient record. Differential Diagnoses - anxiety is more likely for the following reason(s): suggested by H&P - MDD is less likely for the following reason(s): H&P not suggestive CODING: documented in this encounter [facility] 08-28-2023 History of Present illness Narrative Subjective HPI HPI Amy Beasley is a 32 year old male who presents today for CC of sinus pressure, cough. This started 2 weeks. Has tried otc medication for relief. Symptoms are worsened by nothing. smoker. .Patient presents with: Pain, Sinus: Ear pain sore throat and sinus pressure. X2 weeks No past medical history on file. No past surgical history on file. ALLERGIES Patient has no known allergies. MEDICATIONS Szqacbbxwaqfvbo-Cpzpjaszq-MV (BROMFED DM) 2-30-10 mg/5 mL syrup Take 5 mL by mouth three times a day as needed. (Patient not taking: Reported on 08/28/2023) No family history on file. Social History Tobacco Use Smoking status: Never Smokeless tobacco: Current Types: Chew Review of Systems Constitutional: Negative for fever. HENT: Positive for congestion, ear pain and sore throat. Negative for ear discharge and nosebleeds. Respiratory: Positive for cough. Negative for shortness of breath and wheezing. Musculoskeletal: Negative for neck pain. Objective Blood pressure 134/72, pulse 66, temperature 36.2 C (97.2 F), resp. rate 16, weight (!) 141.2 kg (311 lb 4.6 oz), SpO2 98%. Physical Exam Constitutional: General: He is not in acute distress. Appearance: He is not toxic-appearing or diaphoretic. HENT: Head: Normocephalic and atraumatic. Right Ear: Hearing, tympanic membrane, ear canal and external ear normal. Left Ear: Hearing, tympanic membrane, ear canal and external ear normal. Nose: Nose normal. Mouth/Throat: Pharynx: Uvula midline. No pharyngeal swelling, oropharyngeal exudate, posterior oropharyngeal erythema or uvula swelling. Eyes: General: Lids are normal. No scleral icterus. Right eye: No discharge. Left eye: No discharge. Conjunctiva/sclera: Conjunctivae normal. Pupils: Pupils are equal, round, and reactive to light. Neck: Trachea: Trachea normal. Cardiovascular: Rate and Rhythm: Normal rate and regular rhythm. Heart sounds: Normal heart sounds. Pulmonary: Effort: Pulmonary effort is normal. Breath sounds: Normal breath sounds. Musculoskeletal: Cervical back: Normal range of motion and neck supple. Lymphadenopathy: Cervical: No cervical adenopathy. Right cervical: No superficial cervical adenopathy. Left cervical: No superficial cervical adenopathy. Skin: Findings: No rash. Neurological: Mental Status: He is alert and oriented to person, place, and time. ASSESSMENT/PLAN: 1. Bacterial sinusitis - ICD9: 473.9, 041.9, ICD10: J32.9, B96.89 - Will begin treatment with as per antibiotic as written, see orders - Supportive care with plenty of fluids, rest, and analgesia prn. - Follow up in 3-5 days if symptoms persist or worsen. - AMOXICILLIN 875 MG-POTASSIUM CLAVULANATE 125 MG TABLET - FLUTICASONE PROPIONATE 50 MCG/ACTUATION NASAL SPRAY,SUSPENSION Syed Rios APRN.MICROMATIC HONE OPERATOR documented in this encounter [facility] 07-31-2023 History of Present illness Narrative SUBJECTIVE: Amy Beasley is a 32 year old male. Who presents today with fever congestion headache. His highest temp was 99.8 the other day. He has had the symptoms for the last 5 days. He has taken sudafed yesterday. He has been exposed to the kids who are also sick. He has a history of HTN but does not take bp medications. He will make an appointment for a new family md before leaving the office today. Patient would like a prescription of amoxicillin for his symptoms today HPI No past medical history on file. No family history on file. Social History Tobacco Use Smoking status: Never Smokeless tobacco: Current Types: Chew ALLERGIES No Known Allergies No current outpatient medications on file. No current facility-administered medications for this visit. OBJECTIVE: BP 162/86 Pulse 80 Temp 36.1 C (97 F) Resp 16 Wt (!) 139.6 kg (307 lb 12.2 oz) SpO2 99% ROS all other systems reviewed and are negative Physical Exam Constitutional: Well developed, well nourished, NAD, A&O X3. ENT: Head is atraumatic, airway patent, mucosal membranes moist pink no exudate no peritonsillar abscess bilateral tympanic membranes clear with no redness or bulging Cardiac: Heart tone normal rate and rhythm Respiratory: Breath sounds clear : no CVA tenderness MS: no swelling, tenderness or deformity in upper or lower extremities, no midline tenderness in cervical, thoracic or lumbar spine. Neuro: strength sensation and coordination intact. CN II-XII grossly intact, Skin: warm and dry with out rash, lesion or ecchymosis on exposed skin Psych: alert appropriate, speech clear MDM It was a pleasure to take care of Amy Beasley today. Patient has had 5 days of symptoms. He has no ear infection. At this point in time I have a low suspicion for a bacterial sinusitis. I have discussed with the patient's that typically a bacterial sinus infection occurs after close to 2 weeks of symptoms to allow for bacterial growth. However for his symptoms I will treat him with Bromfed. This will help his symptoms especially the congestion and sinus pressure. Patient may also take Motrin and Tylenol for any body aches or if he develops a fever. Patient is upset that he is not getting an antibiotic today as this is what he normally gets. I did discuss antibiotic stewardship with him and the risk of taking antibiotics when they are is no bacterial growth. Patient will follow up with family physician. They may return to the Urgent Care or go to the ER for worsening symptoms or concerns. Patient verbalized understanding of plan of care and is in agreement. ASSESSMENT/PLAN: 1. Congestion of nasal sinus - ICD9: 478.19, ICD10: R09.81 - [id number] M 2 MG-30 MG-10 MG/5 ML ORAL SYRUP Tracey Holder APRN.MICROMATIC HONE OPERATOR documented in this encounter [facility] 04-09-2023 Discharge summary Note Date/Time April 09, 2023 8:43am [facility] Medical Records Department [address] [place] [address] Discharge Summary 04/09/23 0840 MR#: [id number] Acct: [id number] Name: AMY BEASLEY Rep #:[id number] : 1990 32 From: Ned Ferrari MD PCP: Care Physician,No Primary Status :ADM IN Location: [place] [address] Providers Date of Admission: 04/07/23 Date of Discharge: 04/09/23 Primary Care Physician: No Primary Care Phys Reason For Visit: BENZODIAZEPINE WITHDRAWAL Diagnosis Discharge Diagnosis (1) Benzodiazepine abuse: Status: Acute Code(s): F13.10 - Sedative, hypnotic or anxiolytic abuse, uncomplicated Plan 32 old gentleman with polysubstance dependence presented today emergency department with plan to undergo medical stabilization from chronic benzodiazepine use 1. Chronic benzodiazepine use with withdrawal ? Admitted to monitored bed managed with phenobarb taper ? Patient was discharged home on gabapentin with plans for patient to follow-up with [facility] counseling services as outpatient within a week 2. Polysubstance dependence ? Including methamphetamine marijuana as well as benzodiazepines counseled on cessation 3. Tobacco dependence - Counseled on cessation, offered nicotine patch for tobacco cravings 4. DVT prophylaxis ? Low risk to encourage early ambulation Time spent in the patient's overall evaluation,decision-making process, review of diagnostic data, adjustment of management, discussion with other providers, nursing nursing and ancillary staff involved in patient's care documentation, 35 Minutes Medications at Discharge Home Medications gabapentin 100 mg capsule (Neurontin) 100 mg PO TID 14 days #42 caps 04/09/23 Hospital Course Summary of Care Provided Minutes Spent on Discharge: 35 Weight / BMI Weight Weight: 130 kg Body Mass Index (BMI) 35.8 ABG / Lab / Microbiology Data 04/07/23 05:10 04/07/23 05:10 D/C Instructions Discharge Diet: No restrictions Discharge Activity: Return to Normal Activity Call your doctor if you observe: Fever of 101 or Higher, Shortness of breath, Fainting spells and Chest pain Meaningful Use Info Meaningful Use Diagnoses (Choose all that apply): None applicable Discharge Plan Admission Admit Date/Time: 04/07/23 00:16 Attending Provider: Ned Ferrari Primary Care Provider: Care Physician,No Primary Consulting Providers: Awa Peralta Discharge Orders/Prescriptions Prescriptions: New gabapentin [Neurontin] 100 mg capsule 100 mg PO TID 14 Days Qty: 42 0RF Other Ambulatory Orders: RAMP - Benzodiazepine Use (Routine) Location: None Selected Ordered By: Dr. Ned Ferrari RAMP - Benzodiazepine Use (Routine) Location: None Selected Ordered By: Dr. Ned Ferrari Referrals / Follow Up: Care Physician,No Primary [Primary Care Provider] - Disposition Disposition (needs filled in before D/C Order can be placed): Home, Self Care Charges/Coding Visit Charges Inpatient E&M: 16971 Disch Hosp >30min 04/09/23 0848 <Electronically signed by Ned Ferrari MD> Cosigner Signature (if applicable): CC: Dr. Ned Ferrari MD; No Primary Care Physician~ Signed [facility] Work Phone: 1(716) 805-427211-26-2023 [facility] Medical Records Department [address] [place] [address] Discharge Summary 04/09/23 0840 MR#: [id number] Acct: [id number] Name: AMY BEASLEY Rep #: [id number] : 1990 32 From: Ned Ferrari MD PCP: Care Physician,No Primary Status:ADM IN Location: [place] [address] Providers Date of Admission: 04/07/23 Date of Discharge: 04/09/23 Primary Care Physician: No Primary Care Phys Reason For Visit: BENZODIAZEPINE WITHDRAWAL Diagnosis Discharge Diagnosis (1) Benzodiazepine abuse: Status: Acute Code(s): F13.10 - Sedative, hypnotic or anxiolytic abuse, uncomplicated Plan 32 old gentleman with polysubstance dependence presented today emergency department with plan to undergo medical stabilization from chronic benzodiazepine use 1. Chronic benzodiazepine use with withdrawal ??? Admitted to monitored bed managed with phenobarb taper ??? Patient was discharged home on gabapentin with plans for patient to follow- up with [facility] counseling services as outpatient within a week 2. Polysubstance dependence ??? Including methamphetamine marijuana as well as benzodiazepines counseled on cessation 3. Tobacco dependence - Counseled on cessation, offered nicotine patch for tobacco cravings 4. DVT prophylaxis ??? Low risk to encourage early ambulation Time spent in the patient's overall evaluation,decision-making process, review of diagnostic data, adjustment of management, discussion with other providers, nursing nursing and ancillary staff involved in patient's care documentation, 35 Minutes Medications at Discharge Home Medications gabapentin 100 mg capsule (Neurontin) 100 mg PO TID 14 days #42 caps 04/09/23 Hospital Course Summary of Care Provided Minutes Spent on Discharge: 35 Weight / BMI Weight Weight: 130 kg Body Mass Index (BMI) 35.8 ABG / Lab / Microbiology Data 04/07/23 05:10 04/07/23 05:10 D/C Instructions Discharge Diet: No restrictions Discharge Activity: Return to Normal Activity Call your doctor if you observe: Fever of 101 or Higher, Shortness of breath, Fainting spells and Chest pain Meaningful Use Info Meaningful Use Diagnoses (Choose all that apply): None applicable Discharge Plan Admission Admit Date/Time: 04/07/23 00:16 Attending Provider: Ned Ferrari Primary Care Provider: Rambo Physician,No Primary Consulting Providers: Awa Peralta Discharge Orders/Prescriptions Prescriptions: New gabapentin [Neurontin] 100 mg capsule 100 mg PO TID 14 Days Qty: 42 0RF Other Ambulatory Orders: RAMP - Benzodiazepine Use (Routine) Location: None Selected Ordered By: Dr. Ned Ferrari RAMP - Benzodiazepine Use (Routine) Location: None Selected Ordered By: Dr. Ned Ferrari Referrals / Follow Up: Care Physician,No Primary [Primary Care Provider] - Disposition Disposition (needs filled in before D/C Order can be placed): Home, Self Care Charges/Coding Visit Charges Inpatient E M: 85097 Disch Hosp >30min 04/09/23 0848 Cosigner Signature (if applicable): CC: Dr. Ned Ferrari MD; No [facility] Progress note Author Ned Ferrari [facility] April 09, 2023 8:08am Note Date/Time April 09, 2023 7:21am [facility] Medical Records Department [address] [place] [address] Progress Note - Hospitalist 04/09/23 0720 MR#: [id number] Acct: [id number] Name: AMY BEASLEY Rep #:[id number] : 1990 32 From: Ned Ferrari MD PCP: Rambo Physician,No Primary Status :ADM IN Location: [place] [address] Reason for Visit Reason for Visit: Diagnoses Sedative, hypnotic or anxiolytic abuse, uncomplicated (04/07/23) Other psychoactive substance abuse, uncomplicated (04/07/23) Subjective Subjective Patient seen symptoms significantly improved. Patient requesting to be discharged home later this evening Objective Data Objective Data Vital Signs: Vital Signs Temp Pulse Resp BP Pulse Ox O2 Del Method 97.8 F 60 18 138/78 H 100 Room Air 04/09/23 03:20 04/09/23 03:20 04/09/23 03:20 04/09/23 03:20 04/09/23 03:20 04/09/23 03:20 Oxygen Delivery Method Room Air Weight: 130 kg Body Mass Index (BMI) 35.8 Intake & Output: Intake and Output for Last 24 Hours 04/07/23 04/08/2304/09/23 23:59 23:59 23:59 Intake Total 510 / 910 1000 / 1000 480 / 480 Balance 510 / 910 1000 / 1000 480 / 480 Lab / Micro Data 04/07/23 05:10 04/07/23 05:10 Physical Exam Narrative GENERAL: cooperative HEENT: Atraumatic; normocephalic EYES; Anicteric, Normal Conjunctiva NECK; supple, normal thyroid, RESPIRATORY: Diminished to auscultation CARDIOVASCULAR: Regular S1 S2, GI: soft, normoactive bowel sounds, : No Renal angle tenderness; EXTREMITIES: No edema, no clubbing, MUSCULOSKELETAL: no muscle wasting NEURO: Awake; no lateralizing signs. SKIN: No Rash PSYCH; Flat affect Assessment & Plan Assessment/Plan (1) Benzodiazepine abuse: PLAN: Plan 32 old gentleman with polysubstance dependence presented today emergency department with plan to undergo medical stabilization from chronic benzodiazepine use 1. Chronic benzodiazepine use with withdrawal ? Admitted to monitored bed managed with phenobarb taper 2. Polysubstance dependence ? Including methamphetamine marijuana as well as benzodiazepines counseled on cessation 3. Tobacco dependence - Counseled on cessation, offered nicotine patch for tobacco cravings 4. DVT prophylaxis ? Low risk to encourage early ambulation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 5 days Specialty Diagnoses / Procedures Referred By Giovanni t Referred To Contact [facility] Diagnoses POSSIBLE SINUS INFECTION: FEVER, CONGESITON, HEADACHE, DRAINAGE X 5 DAYS Procedures EST SAME DAY [facility] [address] [facility] [place] [address] Referral ID Status Reason Start Date Expiration Date Visits Requested Visits Authorized [id number] Outside PCP Financial Clearance Required - Self Pay 07/31/2023 10/29/2023 1 1 Reason Comments Pain, Sinus Ear pain sore throat and sinus pressure. X2 weeks Reason Comments Anxiety Reason Comments General Questions Reason Comments Rash FOR RECORDS PERTAINING TO PATIENTS WHO ARE [...] BE BASED ON THE PRIMARY CLINICAL RECORDS. [employer] provides no warranty or guarantee of the accuracy or completeness of information in this document.
--- NOTE | 2024-12-03 02:17 | EDS_ITS ---
HPI History of Present Illness Chief Complaint: Rash Narrative Narrative: Patient is a 33-year-old male with past medical history of hypertension who presents to the emergency department for concern for cellulitis. Patient states that recently he was diagnosed with poison sumac and notes that he was started on prednisone approximately 2 to 3 days ago now. He states that it started to get better however now he notes that he developed left lower extremity redness and is warm to the touch is concerned for cellulitis prompting him to come here for further evaluation management. Patient states that he was incarcerated recently and noted that he was post to be on lisinopril low dose he notes that he has an appointment with a doctor in the middle of December but is out of his high blood pressure medication. [facility] Home Medications Medication Instructions Recorded Last Taken Type doxycycline hyclate 100 mg capsule 100 mg PO BID 7 day s #14 caps 12/03/24 Unknown Rx hydroxyzine pamoate 25 mg capsule 25 mg PO TID PRN PRN anxiety 12/03/24 Unknown History lisinopril 10 mg tablet 10 mg PO DAILY #30 tabs 11/13 07/09 Unknown Rx Allergy/AdvReac Type Severity Reaction Status Date / Time No Known Allergies Allergy Verified 12/03/24 01:24 Surgical History Hx of tonsillectomy Social History household members: spouse Smoking Status: Current every day smoker tobacco type: cigarettes substance use type: does not use ROS ROS ED ROS Narrative Constitutional: Denies any fevers, chills, headaches Eyes: Denies double vision blurry vision changes vision Cardiovascular: Denies chest pain Respiratory: Denies coughing wheezing shortness of breath Abdomen: Denies abdominal pain nausea vomit diarrhea : Denies any urinary symptoms Neurological: Denies any numbness, weakness, tingling Skin: Complains of poison sumac to the bilateral lower extremities and concern for cellulitis on the left leg as noted above EXAM Physical Exam Narrative Exam Narrative: General: Patient lying in bed rest comfortably did not appear to be acute distress Head: Atraumatic, normocephalic Eyes: PERRL bilaterally, EOMI biotic no conjunctival injection noted Neck: Soft, supple, trachea midline Cardiovascular: Regular rate and rhythm no murmurs gallops rubs noted Respiratory: Clear to auscultation bilaterally Extremities: +5/5 strength noted in the bilateral upper and lower extremities, Neurological: Patient following commands knew that he was at [facility] the year is 2024 Skin: Patient has a rash noted to the bilateral lower extremities with erythema and warmth to the touch in the left lower extremity no petechia no purpura no sloughing of the skin noted Const Vital Signs: 12/03/24 01:25 Temperature 98.8 F Temperature Source Oral Pulse Rate 81 Respiratory Rate 16 Blood Pressure 180/82 H Blood Pressure Mean 114 Pulse Ox 100 Oxygen Delivery Method Room Air MDM MDM MDM Narrative Medical decision making narrative: Patient is a 33-year-old male who presented to the emergency department with concern for cellulitis in the left leg as well as recent diagnosis of poison sumac. On the differential diagnosis includes but not limited to cellulitis, poison sumac, other contact dermatitis. Patient will be given a dose of doxycycline here in the emergency department he will be given a prescription for his lisinopril and he is advised to follow-up with his doctor in the outpatient setting at his scheduled appointment. He was advised to continue steroids as prescribed. He is encouraged return with worsening symptoms or any concerns. He is agreeable this plan all question concerns answered he is discharged home in stable condition. Discharge Plan Triage Chief Complaint: Rash ED Provider: René Summers Dx/Rx/DC Orders Clinical Impression: Cellulitis of left leg, Contact dermatitis due to poison sumac, Hypertension Prescriptions: New lisinopril 10 mg tablet 10 mg PO DAILY Qty: 30 0RF doxycycline hyclate 100 mg capsule 100 mg PO BID 7 Days Qty: 14 0RF No Action hydroxyzine pamoate 25 mg capsule 25 mg PO TID PRN PRN (Reason: anxiety) Primary Care Provider: Care Physician,No Primary Referrals: Care Physician,No Primary [Primary Care Provider] - Activity Restrictions/Additional Instructions: Follow-up with your primary care physician at your scheduled appointment. Take your blood pressure medication that was sent to the pharmacy as prescribed take the antibiotics as prescribed. Return with worsening symptoms or any concerns. If your redness is worsening while on antibiotics after 48 hours you need to return to the emergency department. Print Language: Romanian Disposition Disposition: Home, Self Care
[2024-12-03 02:19] VITALS: BP 149/79; PULSE 75; RESP 16; TEMP 36.7; O2SAT 98
== END 2024-12-03 02:27 | disposition home or self-care (01) ==
PROVIDERS: Emergency Provider Emergency Medicine; Visit Provider Emergency Medicine
DX: L03.116 Cellulitis of left lower limb (principal); L23.7 Allergic contact dermatitis due to plants, except food; I10 Essential (primary) hypertension; F17.210 Nicotine dependence, cigarettes, uncomplicated; Z79.899 Other long term (current) drug therapy
CPT/HCPCS: 99282